=== PATIENT | male | born 1945 | race Two or more races ===

== ENCOUNTER 2024-03-17 13:18 | Inpatient (IN) | payer MEDICARE, MEDICAID, SELFPAY ==
[2024-03-17] VITALS (7 sets, daily range): BP systolic 110–150; BP diastolic 55–73; PULSE 62–79; RESP 17–99; TEMP 36.6–36.7; O2SAT 96–99
--- NOTE | 2024-03-17 13:27 | EKG_ITS ---
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
--- NOTE | 2024-03-17 13:32 | PD.EDRECHK ---
ED Recheck Abnl Lab Rx-RME/HPI General Chief Complaint: Recheck/Abnormal Lab/Rx Stated Complaint: Abnormal labs with Dr Cartagena this morning, chest Time Seen by Provider: 03/17/24 13:31 Arrival date/time: 03/17/24 13:18 RME / HPI RME / HPI narrative: 79-year-old male patient with significant history of hypertension, end-stage renal disease on hemodialysis MWF, status post CABG long time ago, was sent to us by Dr. Oliveira chapter relations administrator for evaluation regarding substernal chest pain. Onset of symptoms since last night as substernal chest pain, severity moderate, nonradiating. Patient took nitro with significant improvement of pain. Patient denies any cough.. Denies any vomiting blood denies any blood in the stool. Denies any changes in the color of the stool. Patient is taking Plavix. Related Data Home Medications ?Medication ?Instructions ?Recorded ?Confirmed clopidogrel 75 mg tablet (Plavix) 75 mg PO QDAY 06/27/18 06/16/23 levothyroxine 100 mcg tablet 150 mcg PO QDAY 01/27/21 06/17/23 vitamin B complex-vitamin C-folic 1 tab PO QDAY 01/27/21 06/17/23 acid 0.8 mg tablet (Nephro-Frances) allopurinol 100 mg tablet 100 mg PO QDAY 12/15/22 06/17/23 alprazolam 0.5 mg tablet 0.5 mg PO QDAY PRN Anxiety 06/16/23 06/17/23 amiodarone 200 mg tablet 200 mg PO DAILY 06/16/23 06/17/23 atorvastatin 40 mg tablet 20 mg PO QPM 06/16/23 06/17/23 carvedilol 6.25 mg tablet 6.25 mg PO BID 06/16/23 06/17/23 furosemide 40 mg tablet 40 mg PO QAM 06/16/23 06/17/23 linagliptin 5 mg tablet (Tradjenta) 5 mg PO QAM 06/16/23 06/17/23 sacubitril 49 mg-valsartan 51 mg 2 tab PO BID 06/16/23 06/17/23 tablet (Entresto) Allergies Allergy/AdvReac Type Severity Reaction Status Date / Time No Known Allergies Allergy Verified 06/17/23 09:33 Review of Systems Review of Systems Narrative Review of Systems: Review of system reviewed and within normal limits except mentioned in HPI ED Exam Narrative Physical exam: VITAL SIGNS: Reviewed. GENERAL APPEARANCE: Alert and interactive, follows commands, no acute distress, HEAD AND FACE: Non-traumatic. ENT: PERRL, pale conjunctiva, eyelid no trauma, Mucous membrane moist. NECK: Supple, nontender, no nuchal rigidity. CHEST: No tenderness, no crepitus, no paradoxical movement, no retractions. LUNGS: Clear, well ventilated, symmetric, no rales, no wheezing, no ronchi, no stridor, good breath sounds bilaterally. HEART: Regular rate, regular rhythm, no murmur, no gallops. ABDOMEN: Soft, positive bowel sounds, nondistended, no guarding, nontender, no rebound, no masses, RECTAL: Deferred. GENITAL: Deferred. NEUROLOGICAL: Gross motor function intact sensory function intact, Appropriate for age. MUSCULOSKELETAL: low back nontender, full range of motion. EXTREMITIES: Nontender, full range of motion. SKIN: Color pink, dry, no rash, no lacerations, no abrasions, no contusions. LYMPHATICS: Deferred. Course Quality Measures none Orders Category Date Time Status COVID-19 Screening Questionnaire NOW Care 03/17/24 16:31 Active Decision to Admit X1 Care 03/17/24 16:31 Completed EKG (ED ONLY) *Do not use* NOW Care 03/17/24 13:27 Completed EKG (ED ONLY) *Do not use* NOW Care 03/17/24 13:53 Completed Insert IV NOW Care 03/17/24 16:18 Active Notify provider NOW Care 03/17/24 16:31 Active Occult Blood,Stool (Nursing) ONCE Care 03/17/24 13:32 Active Consult to Cardiology Stat Cons 03/17/24 15:42 Ordered Consult to Nephrology Stat Cons 03/17/24 16:33 Ordered EKG (ED Only) Stat Exams 03/17/24 13:27 Draft EKG (ED Only) Stat Exams 03/17/24 13:53 Ordered XR chest 1V Stat Exams 03/17/24 13:53 Completed CBC Stat Lab 03/17/24 14:09 Completed Comprehensive Metabolic Panel Stat Lab 03/17/24 14:09 Completed Partial Thromboplastin Time AM DRAW Lab 03/19/24 05:00 Ordered Partial Thromboplastin Time Stat Lab 03/17/24 14:09 Completed Prothrombin Time with INR AM DRAW Lab 03/19/24 05:00 Ordered Prothrombin Time with INR Stat Lab 03/17/24 14:09 Completed Troponin I Stat Lab 03/17/24 14:09 Completed Type and Screen Stat Lab 03/17/24 14:09 Completed Urinalysis Stat Lab 03/17/24 14:20 Completed Aspirin Med 03/17/24 15:32 Discontinued 325 mg PO X1 ONE Heparin Inj Med 03/17/24 16:31 Discontinued 3,800 unit IV X1 ONE Heparin/D5w 25K 250 ML Ivpb [Heparin in D5w Ivpb] Med 03/17/24 16:45 Active 25,000 unit in 250 ml IV 12 units/kg/hr mg Hyd/Al Hyd/Marleni Susp [Maalox Susp] Med 03/17/24 16:14 Discontinued 30 ml PO X1 ONE Vital Signs Vital signs: Vital Signs Temperature 98.1 F 03/17/24 13:51 Pulse Rate 79 03/17/24 13:51 Respiratory Rate 20 03/17/24 13:51 Blood Pressure 150/73 H 03/17/24 13:51 Pulse Oximetry (%) 99 03/17/24 13:51 Oxygen Delivery Method Room Air 03/17/24 13:51 Recheck / Abnormal Lab / Rx MDM Narrative MDM Narrative:: 79-year-old male patient with significant history of hypertension, end-stage renal disease on hemodialysis MWF, status post CABG long time ago, was sent to us by Dr. Oliveira chapter relations administrator for evaluation regarding substernal chest pain. Onset of symptoms since last night as substernal chest pain, severity moderate, nonradiating. Patient took nitro with significant improvement of pain. Patient denies any cough.. Denies any vomiting blood denies any blood in the stool. Denies any changes in the color of the stool. Patient is taking Plavix. Patient's troponin was noted to be 5.2 went up from 3.9 earlier. I spoke with Dr. Castillo who told me to asked the hospitalist to admit and asked Dr. Oliveira to do consult also I talked to Dr. Cartagena however Dr. Oliveira is out of town wanted me to refer the patient to chapter relations administrator on-call Patient was given aspirin p.o. patient was started also on heparin drip Spoke with Dr. Bolaños, chapter relations administrator, who accepted the consult and comanagement thank you Dr. Patient data External records reviewed:: None Clinical information provided by:: patient Social determinants that could affect healthcare access:: none Patient has the following chronic illnesses:: ESRD, hypertension, CAD status post CABG How is presenting disease/condition affected by chronic disease/condition?: exacerbated by Evaluation data The following diagnostics were reviewed and interpreted by me:: lab results, radiology exam(s) and EKG tracing(s) Lab and/or radiology exams considered but not ordered:: None Interpretation Summary: EKG showed paced rhythm, ventricular rate of 70 bpm, WY interval 253, QRS duration 116 MS, no ST segment elevation depression noted. Initially patient's troponin was noted to be 3.9 in cardiology clinic, here no manage it was 5.5. The rest of the labs unremarkable except for chronic kidney disease, potassium is normal. Chest x-ray showed early heart failure. Medications / Prescriptions Medications or Prescriptions considered but not ordered:: None Medication administrations:: Medication Administration History Acetaminophen (Acetaminophen 325 Mg Tablet) 650 mg PO Q6H PRN PRN Reason: pain 1-3 and Fever >100.4 Stop: 04/16/24 17:09 Hydrocodone Bitart/Acetaminophen (Hydrocodone/Apap 5/325 Tablet) 1 tab PO Q4HR PRN PRN Reason: PAIN SCALE 4-6 (Moderate Stop: 03/22/24 17:09 Aspirin (Aspirin Ec 81 Mg Tabec) 81 mg PO QDAY [facility] Stop: 04/17/24 08:59 Atorvastatin Calcium (Atorvastatin Calcium 20 Mg Tablet) 40 mg PO HS [facility] Stop: 04/16/24 20:59 Carvedilol (Carvedilol 3.125 Mg Tablet) 6.25 mg PO BIDWM [facility] Stop: 04/17/24 07:59 Dextrose (Dextrose 50%-Water Inj 50 Ml Syringe) 25 ml IV Q15MIN PRN PRN Reason: BG 50-70 responsive npo pt Stop: 04/16/24 17:09 Dextrose (Dextrose 50%-Water Inj 50 Ml Syringe) 50 ml IV Q15MIN PRN PRN Reason: BG <50 OR BG <70 & pt unresponsive Stop: 04/16/24 17:09 Glucagon (Glucagon Inj 1 Mg Vial) 1 mg IM Q15MIN PRN PRN Reason: BG <70, and no IV access Heparin Sodium/Dextrose (Heparin In D5w Ivpb) 25,000 unit in 250 mls @ 7.62 mls/hr IV .Q24H [facility]; Protocol Stop: 03/31/24 16:44 Last Admin: 03/17/24 17:11 Dose: 12 units/kg/hr, 7.62 mls/hr Documented By: AURY Co-signed By: VG Insulin Human Lispro (Insulin Lispro (Admelog) 1 Unit/0.01 Ml Unit) 0 unit SC AC [facility]; Protocol Stop: 04/17/24 07:29 Levothyroxine Sodium 25 mcg/ (Levothyroxine Sodium 125 mcg) 150 mcg PO ACPSYCHIATRIC Stop: 04/17/24 05:59 Morphine Sulfate (Morphine Sulf Inj 10 Mg/Ml Vial) 1 mg IVP Q4H PRN PRN Reason: PAIN SCALE 7-10 (Severe Stop: 03/22/24 17:09 Ondansetron HCl (Ondansetron Inj 2 Mg/Ml Inj 2 Ml) 4 mg IV Q6H PRN; Protocol PRN Reason: NAUSEA OR VOMITING Stop: 04/16/24 17:09 Pharmacy Consult (Pharmacy Renal Dose Adjustment 1 Ea) 1 each XX PRN PRN PRN Reason: CONSULT Stop: 04/16/24 17:22 Discontinued Medications Al Hydrox/Mg Hydrox/Simethicone (Mg Hyd/Al Hyd/Marleni (Maalox Reg) Susp 30 Ml Udc) 30 ml PO X1 ONE Stop: 03/17/24 16:15 Last Admin: 03/17/24 16:19 Dose: 30 ml Documented By: AURY Aspirin (Aspirin 325 Mg Tablet) 325 mg PO X1 ONE Stop: 03/17/24 15:33 Last Admin: 03/17/24 16:13 Dose: 325 mg Documented By: AURY Atorvastatin Calcium (Atorvastatin Calcium 20 Mg Tablet) 20 mg PO HS ADOLFO Stop: 04/16/24 20:59 Heparin Sodium (Porcine) (Heparin Sod Inj 5000 Unit/Ml Vial) 3,800 unit 60 unit/kg (3800 unit) IV X1 ONE; Protocol Stop: 03/17/24 16:32 Last Admin: 03/17/24 17:06 Dose: 3,800 unit Documented By: AURY Co-signed By: RICHARD Aspirin, and heparin IV bolus and drip Consultations Consultation(s) initiated? (list below): Yes Consultation #1 (Physician, Specialty, Details): Dr House Diagnosis Recheck Differential Diagnosis: other (Chest pain, non-STEMI, elevated troponin) Most likely diagnosis given after review of the tests above:: Non-STEMI Admission Indicated Admission indicated?: indicated Explain why admission is indicated or not indicated:: Patient is to be admitted for further management Admission Request Was there a request for admission?: No Disposition Plan Disposition Plan: Admit Discharge Plan Problem List Clinical Impression: Non-STEMI (non-ST elevated myocardial infarction)
--- NOTE | 2024-03-17 13:53 | XR_ITS ---
Examination: PA chest single view TECHNIQUE: Upright PA lateral single view Exam date and time: March 17, 2024 1428 hours Comparison December 28, 2022 INDICATIONS: Chest pain today. FINDINGS: Mild to moderate enlargement left ventricle CABG Moderate vascular congestion No lobar pneumonia Subtle septal edema at the lung bases IMPRESSION: Early heart failure
[2024-03-17 14:20] LABS: Basophils # (Auto) 0.1 Thou/mm3 (0.0-0.2); Basophils % (Auto) 1 % (0-2.5); Eosinophils # (Auto) 0.2 Thou/mm3 (0.0-0.5); Eosinophils % (Auto) 2 % (0-10); Hematocrit 37.2 % (41.0-53.0); Hemoglobin 12.4 g/dL (13.5-16.0); Immature Granulocytes % (Auto) 0 % (0-0); Immature Granulocytes Auto 0.02 Thou/mm3 (0.00-0.00); Lymphocytes % (Auto) 18 % (10-50); Mean Corpuscular HGB Conc 33.3 g/dl (31.0-37.0); Mean Corpuscular Hemoglobin 32.5 pg (25.0-35.0); Mean Corpuscular Volume 98 fL (80-100); Monocytes # (Auto) 0.9 Thou/mm3 (0.0-0.8); Monocytes % (Auto) 8 % (0-12); Neutrophils # (Auto) 7.7 Thou/mm3 (1.8-7.7); Neutrophils % (Auto) 71 % (37-80); Nucleated Red Blood Cell % 0 /100 WBC (0); Platelet Count 160 Thou/mm3 (140-440); RDW Standard Deviation 43.2 fL (35.1-43.9); Red Blood Count 3.81 Miln/mm3 (4.50-5.90)
[2024-03-17 14:34] LABS: Collection Type, Urine Clean Catch
[2024-03-17 14:45] LABS: Bilirubin,Urine Negative (Negative); Blood,Urine 1+ (Negative); Clarity,Urine Clear (Clear/Hazy); Color,Urine Yellow (Lt Yel-Yel); Glucose, Urine Negative (Negative); Ketones,Urine Negative (Negative); Leukocyte Esterase,Urine Positive (Negative); Nitrite,Urine Negative (Negative); PH,Urine 7.5 (5.0-7.0); Protein,Urine 2+ (Neg - Trace); RBC,Urine 4 /hpf (0-3); Specific Gravity,Urine 1.023 (1.001-1.035); Squamous Epithelial Cell,Urine 3 /hpf (0-5); WBC,Urine 25 /hpf (0-5)
[2024-03-17 14:47] LABS: Alanine Aminotransferase 12 U/L (10-49); Albumin, Serum 4.6 gm/dL (3.4-4.8); Alkaline Phosphatase 149 U/L (46-116); Anion Gap 7 (7-16); Aspartate Amino Transferase 50 U/L (0-34); BUN/Creatinine Ratio 10 Ratio (12-20); Bilirubin,Total 0.7 mg/dL (0.3-1.2); Blood Urea Nitrogen 47 mg/dL (9-23); Calcium 9.3 mg/dL (8.3-10.6); Calcium (Corrected) 9.3 mg/dL (8.5-10.1); Carbon Dioxide 29.1 mMol/L (20.0-31.0); Chloride 98 mMol/L (98-107); Creatinine (Component) 4.6 mg/dL (0.6-1.3); Globulin 4.6 gm/dL (2.3-3.5); Glucose 186 mg/dL (74-106); Osmolality,Calculated 285 (275-295); Potassium 4.2 mMol/L (3.4-5.1); Sodium 134 mMol/L (136-145); Total Protein 9.2 gm/dL (5.7-8.2); eGFR 12 See Note
[2024-03-17 14:49] LABS: Troponin I 5.526 ng/mL (0.0-0.045)
[2024-03-17 14:51] LABS: INR 1.1 (0.9-1.3); Partial Thromboplastin Time 29.4 Seconds (22.0-36.0); Prothrombin Time 11.6 Seconds (9.0-12.2)
[2024-03-17] MEDS: Aspirin 325 MG TABLET PO (16:13)
[2024-03-17] MEDS: MG HYD/AL HYD/SIME (Maalox Reg) SUSP 30 ML UDC PO ×2 (16:19→22:15)
[2024-03-17] MEDS: HEPARIN SOD INJ 5000 UNIT/ML VIAL 3800 UNIT IV (17:06)
[2024-03-17] MEDS: Heparin/D5w 25K 250 ML Ivpb 25,000 UNIT/250 ML BAG 7.62 UNIT IV (17:11)
--- NOTE | 2024-03-17 17:17 | ESHP_ITS ---
<Statement entered by Karon Yoo MD - 03/17/24 18:33> I discussed with and supervised my co-resident involved in the care of this patient. I agree with the assessment and plan as documented above. Karon Yoo,PGY-3 Disclaimer: Despite multiple revisions, due to the dictation software being used, the document below may not be free of grammatical errors including phonetic/typographic errors. However, this does not deter from our commitment to providing health care in the patient's best interest in mind. 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 During assessment patient stated that yesterday he started having some substernal chest pain in the lower side of his chest which radiated to the mid chest and to the back around 6 PM and remained constant up to 12:30 at night. At 12:30 at night he then took 1 nitroglycerin which she stated provided to relieve. Patient described the pain as an infarct and he stated that he has had similar pain in the past when he had an MA. He mentioned that he decided to go to his video camera operator today given his chest pain and that his video camera operator told him that he had elevated troponins and sent him to the hospital. Patient was supposed to get hemodialysis today, but he stated that he decided to go to his video camera operator instead of hemodialysis. He states that right now he feels fine with no chest pain and that he could go and play a soccer game. No other complaints. He denies any nausea, vomiting, cough, fevers, lower extremity swelling, or shortness of breath. ED course: Initially patient came in hypertensive and afebrile. Initial labs were relevant for mild leukocytosis (11), # normochromic anemia (12.4), elevated BUN and creatinine (47 and 4.6 respectively), troponinemia (3.906 and up trended to 5.526), and UA was positive for leukocyte esterase. Initial imaging included chest x-ray which showed heart failure pattern, and EKG which showed some ST elevations in lead III, aVF, V3, V4, and V5. ED physician communicated with patient's video camera operator who stated to admit the patient and to consult the on-call video camera operator. On-call video camera operator stated to admit the patient and start heparin drip. PMH: As above Social Hx: Denies any alcohol, smoking, or drugs Surgical Hx: CABG and pacemaker placement Review of Systems Review of Systems Narrative Review of Systems: Constitutional: Denies sweats, Denies weight loss/gain, Denies fever, Denies chills. HEENT: Denies hearing loss, Denies ear pain, Denies postnasal drip, Denies double vision, Denies blurry vision. Respiratory: Denies shortness of breath, Denies cough, Denies wheezing. Cardiovascular: Admits chest pain, Denies palpitations, Denies sudden loss of consciousness. GI: Denies blood in stool, Denies constipation, Denies abdominal pain, Denies difficulty swallowing, Denies nausea or vomit. : Denies urinary incontinence, Denies pain while urinating, Denies increased urinary frequency. MSK: Denies joint pain, Denies joint swelling, Denies numbness. Skin: Denies rash, Denies itching, Denies easy bruising. Neuro: Denies headaches, Denies dizziness, Denies seizures. Past Medical History Surgical History OTHER SURGICAL HX: As in the history of present illness Exam Vital Signs Temp Pulse Resp BP Pulse Ox O2 Del Method 98.1 F 79 20 150/73 H 99 Room Air 03/17/24 13:51 03/17/24 13:51 03/17/24 13:51 03/17/24 13:51 03/17/24 13:51 03/17/24 13:51 Narrative Exam General: A/O x3, no acute distress, well-nourished, well-developed Eyes: PERRL, EOMI. Anicteric, vision grossly intact. Ears: No ear pain, no ear discharge, Hearing grossly intact. Nose: No nasal discharge. Mouth/Throat: Moist mucous membranes, no redness, no lesions. Neck: Neck supple, non-tender, no cervical lymphadenopathy. Lungs: Clear KARIS to auscultation and percussion, No accessory muscle use. Cardio: Normal S1/S2, regular rhythm, no murmurs, no JVD Abdomen: Soft, non-tender, no palpable masses, peristalsis present, no guarding or rebound. Extremities: Symmetrical, no significant deformities, no peripheral edema , non-tender, peripheral pulses presents. Skin: No rashes, no lesions, warm to touch. AV fistula in R UE, scar in mid chest Neuro: No focal neurological deficits. motor and sensory intact Psych: Cooperative, appropriate mood and effect. Results: Labs 03/17/24 14:09 03/17/24 14:09 Labs: Short CBC 03/17/24 Range/Units 14:09 WBC 11.0 H (3.8-10.6) Thou/mm3 Hgb 12.4 L (13.5-16.0) g/dL Hct 37.2 L (41.0-53.0) % Plt Count 160 (140-440) Thou/mm3 BMP 03/17/24 14:09 Sodium 134 L Potassium 4.2 Chloride 98 Carbon Dioxide 29.1 BUN 47 H Creatinine 4.6 H* Glucose 186 H Calcium 9.3 Cardiac Enzymes 03/17/24 Range/Units 14:09 Troponin I 5.526 H* D (0.0-0.045) ng/mL Liver Function 03/17/24 Range/Units 14:09 Total Bilirubin 0.7 (0.3-1.2) mg/dL AST 50 H (0-34) U/L ALT 12 (10-49) U/L Alkaline Phosphatase 149 H (46-116) U/L Albumin 4.6 (3.4-4.8) gm/dL Urine 03/17/24 Range/Units 14:20 Urine Color Yellow (Lt Yel-Yel) Urine Clarity Clear (Clear/Hazy) Urine pH 7.5 H (5.0-7.0) Ur Specific [place] 1.023 (1.001-1.035) Urine Protein 2+ A (Neg - Trace) Urine Glucose (UA) Negative (Negative) Quality Measures Quality Measures VTE prophylaxis Advance care planning discussed with:: patient and spouse Medications Home Medications and Allergies Home Medications ?Medication ?Instructions ?Recorded ?Confirmed ?Type clopidogrel 75 mg tablet (Plavix) 75 mg PO QDAY 06/27/18 06/16/23 History levothyroxine 100 mcg tablet 150 mcg PO QDAY 01/27/21 06/17/23 History vitamin B complex-vitamin C-folic 1 tab PO QDAY 01/27/21 06/17/23 History acid 0.8 mg tablet (Nephro-Frances) allopurinol 100 mg tablet 100 mg PO QDAY 12/15/22 06/17/23 History alprazolam 0.5 mg tablet 0.5 mg PO QDAY PRN Anxiety 06/16/23 06/17/23 History amiodarone 200 mg tablet 200 mg PO DAILY 06/16/23 06/17/23 History atorvastatin 40 mg tablet 20 mg PO QPM 06/16/23 06/17/23 History carvedilol 6.25 mg tablet 6.25 mg PO BID 06/16/23 06/17/23 History furosemide 40 mg tablet 40 mg PO QAM 06/16/23 06/17/23 History linagliptin 5 mg tablet (Tradjenta) 5 mg PO QAM 06/16/23 06/17/23 History sacubitril 49 mg-valsartan 51 mg 2 tab PO BID 06/16/23 06/17/23 History tablet (Entresto) Allergies Allergy/AdvReac Type Severity Reaction Status Date / Time No Known Allergies Allergy Verified 06/17/23 09:33 Visit Medications Acetaminophen (Acetaminophen 325 Mg Tablet) 650 mg PO Q6H PRN PRN Reason: pain 1-3 and Fever >100.4 Stop: 04/16/24 17:09 Hydrocodone Bitart/Acetaminophen (Hydrocodone/Apap 5/325 Tablet) 1 tab PO Q4HR PRN PRN Reason: PAIN SCALE 4-6 (Moderate Stop: 03/22/24 17:09 Dextrose (Dextrose 50%-Water Inj 50 Ml Syringe) 25 ml IV Q15MIN PRN PRN Reason: BG 50-70 responsive npo pt Stop: 04/16/24 17:09 Dextrose (Dextrose 50%-Water Inj 50 Ml Syringe) 50 ml IV Q15MIN PRN PRN Reason: BG <50 OR BG <70 & pt unresponsive Stop: 04/16/24 17:09 Glucagon (Glucagon Inj 1 Mg Vial) 1 mg IM Q15MIN PRN PRN Reason: BG <70, and no IV access Heparin Sodium/Dextrose (Heparin In D5w Ivpb) 25,000 unit in 250 mls @ 7.62 mls/hr IV .Q24H ADOLFO; Protocol Stop: 03/31/24 16:44 Last Admin: 03/17/24 17:11 Dose: 12 units/kg/hr, 7.62 mls/hr Insulin Human Lispro (Insulin Lispro (Admelog) 1 Unit/0.01 Ml Unit) 0 unit SC AC ADOLFO; Protocol Stop: 04/17/24 07:29 Morphine Sulfate (Morphine Sulf Inj 10 Mg/Ml Vial) 1 mg IVP Q4H PRN PRN Reason: PAIN SCALE 7-10 (Severe Stop: 03/22/24 17:09 Ondansetron HCl (Ondansetron Inj 2 Mg/Ml Inj 2 Ml) 4 mg IV Q6H PRN; Protocol PRN Reason: NAUSEA OR VOMITING Stop: 04/16/24 17:09 Discontinued Medications Al Hydrox/Mg Hydrox/Simethicone (Mg Hyd/Al Hyd/Marleni (Maalox Reg) Susp 30 Ml Udc) 30 ml PO X1 ONE Stop: 03/17/24 16:15 Last Admin: 03/17/24 16:19 Dose: 30 ml Aspirin (Aspirin 325 Mg Tablet) 325 mg PO X1 ONE Stop: 03/17/24 15:33 Last Admin: 03/17/24 16:13 Dose: 325 mg Heparin Sodium (Porcine) (Heparin Sod Inj 5000 Unit/Ml Vial) 3,800 unit 60 unit/kg (3800 unit) IV X1 ONE; Protocol Stop: 03/17/24 16:32 Last Admin: 03/17/24 17:06 Dose: 3,800 unit Assessment & Plan Plan 79-year-old male with past medical history of CAD s/p CABG, HFrEF (EF 30 to 35% 2022), A-fib s/p pacemaker, ESRD (HD on MWF), DM 2, hypothyroidism, hyperlipidemia, and hypertension was admitted to hospital on 03/17/2024 for elevated troponins and chest pain. #Elevated Troponin #Typical chest pain #workup for ACS #Hx of CAD s/p CABG ?Patient complaining of substernal chest pain with radiated to his back and was relieved with nitroglycerin ? Troponins were 3.906 and up trended to 5.526 ?EKG which showed some ST elevations in lead III, aVF, V3, V4, and V5. ?ED physician communicated with patient's video camera operator who stated to admit the patient and to consult the on-call video camera operator. On-call video camera operator stated to admit the patient and start heparin drip. Plan: ? Heparin drip started ?Atorvastatin 20 mg at bedtime ? Trend troponins every 6 hours ?Cardiology consulted, appreciate recommendations ? Will continue to monitor #ESRD (HD on MWF) ? Patient was supposed to get hemodialysis today, but skipped hemodialysis to go to his video camera operator. ? Patient is BUN was 47 and creatinine 4.6 on admission ? Patient follows up with president outpatient ? Hemodialysis held today and mostly will be done tomorrow as per nephrology Plan: ? Avoid nephrotoxic agents ? Renally dose medications ? Nephrology consulted, appreciate recommendations ? Will continue monitor #Normocytic normochromic anemia ?Patient's hemoglobin was 12.4 on admission ? Patient has a history of chronic anemia with base hemoglobin at 13.2 ?No active signs of bleeding Plan: ?Will transfuse hemoglobin less than 7 ? Will continue to monitor #Mild leukocytosis ?WBC 11 on admission ? Most likely reactive #Hx of HFrEF (EF 30 to 35% in 2022) ? Patient is not on acute decompensated heart failure exacerbation at this time Plan: ? Echo ordered ?Cardiology consulted, appreciate recommendations ? Will continue to monitor #Hx of A-fib s/p pacemaker ? EKG showed paced rhythm with some ST elevations in lead III, aVF, V3, V4, and V5 ? Patient rate controlled at this time Plan: ? Will await medication reconciliation for starting amiodarone 200 mg daily ?Cardiology consulted, appreciate recommendations #Hx of DM2 ? Glucose 186 on admission Plan: ? A1c ordered for a.m. labs ? ISS ? Accu-Cheks and hypoglycemia protocol ordered ? Will continue to monitor #Hx of hyperlipidemia ? Atorvastatin 20 mg nightly started #Hx of hypothyroidism ? Restarted patient's levothyroxine 150 mg Disposition: Patient admitted to telemetry for elevated troponins and chest pain on heparin drip Diet: cardiac/carb cons GI prophylaxis: protonix DVT prophylaxis: Heparin drip Code:Full Case disclosed with Attending Dr. Perry and My senior Dr. Yoo PGY3. Israel Dugan PGY1 Attending Provider Attestation/Addendum I have examined the patient, reviewed labs and imaging findings, discussed the case with the resident(s), and reviewed entered orders. I agree with the plan of care as outlined in this note, with these additional summaries/recommendations: Patient is a 79-year-old male with a medical history of CAD status post CABG, CHF, paroxysmal atrial fibrillation with slow ventricular response status post pacemaker, ESRD on hemodialysis MWF via right upper extremity AV fistula, anxiety, hypothyroidism, hyperlipidemia, and primary hypertension who presents to [facility] emergency department on 03/17/2024 with chief complaint of substernal chest pain with elevated troponins and EKG changes and thus hospitalist team consulted for continuation of care. #NSTEMI Type I vs II # History of CAD with CABG Presented with chest pain Given typical features and CAD history this is concerning for ACS or plaque rupture BAO score: 5 points indicating 26% risk of all cause mortality, new or recurrent MA, severe recurrent ischemia requiring urgent revascularization Pat score: 159 points indicating 26% probability of from admission to 6 months Troponin elevated to 5.526 (of note troponin chronically elevated likely secondary to ESRD) EKG demonstrated paced rhythm, rate 70, ST changes in aVF and V3-V6 Work-up: Telemetry, troponin until downtrending, serial EKGs, TTE CAD risk factor screening: A1c, lipid panel, TSH Treatment: Titrate O2 as needed for symptoms Antiplatelet: S/p ASA 325 mg, start ASA 81mg PO QD, appreciate cardio recs on Plavix Anticoagulation: Started on heparin gtt. Plaque stabilization: Atorvastatin 40 mg p.o. at bedtime Cardiac remodeling: Resume Coreg 6.25 mg p.o. twice daily and will consider starting JUSTO/ARB in AM We will consider adding IV morphine as needed or nitroglycerin as needed if chest pain develops again Plan: Cardiology consulted, recommendations appreciated. Continue above management and trend troponins. # History of CHF #Hx of A-fib Echocardiogram from 12/15/2022 showed severe systolic dysfunction with estimated EF of 30 to 35%. Patient does not appear to be in acute exacerbation at this time. Plan: Resume home Coreg. We will consider resuming Entresto in AM and no need for diuresis as patient is dialysis dependent. Echocardiogram ordered and cardiology consulted. Strict I's and O's. # End-stage renal disease History of ESRD on HD Wednesday via right upper extremity AV fistula Plan: Consult nephrology, recommendations appreciated. # Hypothyroidism TSH and free T4 ordered Plan: Pending med rec to resume home levothyroxine # Hyperlipidemia Lipid panel ordered Plan: Continue atorvastatin # Anxiety Plan: Resume home anxiolytics once med rec completed Dr. Perry
--- NOTE | 2024-03-17 17:41 | ECHO_ITS ---
Transthoracic Echo Report Ht (in): 66 Wt (lb): 140 Exam Location: Portable Status: Inpatient Medical Genetics Director: Anabel Edouard Indications: Procedure Performed: BP: 104 / 60 HR: 62 Technical Quality: Fair MEASUREMENTS (Male / Female) Normal Values 2D ECHO LV Diastolic Diameter PLAX 5.7 cm 4.2 - 5.9 / 3.9 - 5.3 cm LV Systolic Diameter PLAX 4.4 cm IVS Diastolic Thickness 1.0 cm 0.6 - 1.0 / 0.6 - 0.9 cm LVPW Diastolic Thickness 1.0 cm 0.6 - 1.0 / 0.6 - 0.9 cm LV Relative Wall Thickness 0.3 LVOT Diameter 1.9 cm LA Volume Index 46.8 cm?/m? 16 - 28 cm?/m? Ascending Aorta Diameter 3.7 cm M-MODE Aortic Root Diameter MM 3.0 cm LA Systolic Diameter MM 4.7 cm LA Ao Ratio MM 1.6 AV Cusp Separation MM 2.2 cm DOPPLER AV Peak Velocity 149.0 cm/s AV Peak Gradient 8.9 mmHg AV Mean Gradient 5.0 mmHg AV Velocity Time Integral 28.6 cm LVOT Peak Velocity 86.5 cm/s LVOT Peak Gradient 3.0 mmHg LVOT Velocity Time Integral 15.5 cm LVOT Cardiac Index 1581.5 cm?/min?m? AV Area Cont Eq vti 1.5 cm? AV Area Cont Eq pk 1.6 cm? MV Peak Velocity 125.0 cm/s MV Peak Gradient 6.3 mmHg MV Mean Velocity 54.8 cm/s MV Mean Gradient 2.0 mmHg MV Area PHT 3.7 cm? MR Peak Velocity 301.5 cm/s MR Peak Gradient 36.4 mmHg Mitral E Point Velocity 106.0 cm/s Mitral A Point Velocity 0.5 cm/s Mitral E to A Ratio 218.6 LV E' Lateral Velocity 7.1 cm/s Mitral E to LV E' Lateral Ratio 15.0 LV E' Septal Velocity 3.6 cm/s Mitral E to LV E' Septal Ratio 29.5 TR Peak Velocity 212.0 cm/s TR Peak Gradient 18.0 mmHg PV Peak Velocity 113.0 cm/s PV Peak Gradient 5.1 mmHg FINDINGS Left Ventricle Normal left ventricular size, wall thickness. Moderate systolic dysfunction with hypokinesis of infe ro posterior and anteiror wall. The ejection fraction is visually estimated at 30-35%. Right Ventricle The right ventricle is mildly dilated. Mild systolic dysfunction. The estimated right ventricular s ystolic pressure, 39 mmHg. RAP 15. Pacing wire presnt. Left Atrium The left atrium is moderately dilated. Right Atrium The right atrium is mildly dilated. Atrial Septum The interatrial septum appears normal with no evidence of a shunt. Aorta The ascending aorta is mildly dilated. Mitral Valve The mitral valve is normal by two-dimensional, color flow and Doppler interrogation. There is mild mitral valve regurgitation. Aortic Valve The aortic valve is trileaflet. Mild sclerosis without stenosis. There is mild aortic valve regurgi tation. Tricuspid Valve The tricuspid valve is normal by two-dimensional, color flow and Doppler interrogation. There is mil d tricuspid valve regurgitation. Pulmonic Valve There is mild to moderate pulmonic valve regurgitation. Vessels The pulmonary artery appears normal. The inferior vena cava pulmonary and hepatic veins appear dilat ed. Pericardium The pericardium is normal by two-dimensional imaging. There is no significant pericardial effusion. CONCLUSIONS Indication: Elevated Trop Normal LV size. Moderate systolic dysfunction. Hypokinesis of inferoposterior and anterior wall. Est imated EF 30-35% Mild RV dilatationn. Mild RV dysfunction. Estimated RVSP 39mmHg. Pacing wire present. Moderate LA dilatation. Mild RA dilatation. The ascending aorta is mildly dilated. Mild AV sclerosis without stenosis. Mild MR, AI, TR. Mild to moderate PI. IVC dilated. Cristopher Ga (Electronically Signed) Final Date: 20 March 2024 17:41
--- NOTE | 2024-03-17 17:49 | ESCONSULT_ITS ---
<Statement entered by Britton Bolaños MD - 03/18/24 09:41> I have personally seen and examined the patient separately on the above date of service and discussed the plan of care with the resident. I reviewed the resident Dr. Dowell consultation progress note and agree with the resident findings and plan in the note above and have also edited the documentation to reflect my findings and plan. 79-year-old male with a past medical history of severe CAD status post to CABG [1998 with 4 grafts in 2008 with 3 grafts as per patient], PCI to mid to distal LCx in 2017, recent PCI with 3 stents to the SVG to OM1 graft in December 2022 still with residual disease, residual severe 80% stenosis of the STAPLES to LAD anastomosis, [place] arteries showed 100% occluded RCA and mild disease of the LCx with patent stent, severe 90% stenosis of the proximal LAD as well as the proximal diagonal with faint collaterals to right, paroxysmal atrial fibrillation, sick sinus syndrome, Medtronic dual-chamber permanent pacemaker in 2020, severe systolic CHF with an EF of 30 to 35% in December 2022, moderate to severe RV dysfunction along with diastolic dysfunction, essential hypertension, diabetes mellitus, hyperlipidemia, end-stage renal disease on hemodialysis,, chronic anemia mostly from ESRD, hypothyroidism presented to the hospital for further evaluation of chest pain. 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 Ga this morning as he had started to have severe chest pain around 6 PM yesterday and continued to have more chest pain in spite of the nitroglycerin. Patient still have the chest pain's office and a troponin was sent from his office and patient was sent to the emergency department for further evaluation. Patient denies any kind of shortness of breath or new leg swelling or orthopnea or PND denied any Fever or chills or cough or sputum production. Cardiology was called consulted as his troponins were elevated at 5.5. Patient is now chest pain-free during my examination. In the emergency department initial vitals showed blood pressure of 150/73 mmHg heart rate of 79/min, afebrile and saturations normal on room air speaking in full sentences, and hemoglobin 12.4 WBC 11 platelets 160 BUN 46 creatinine of 4.6 on dialysis, sodium 134, troponin 5.5 but the office troponin was 2.5 LFTs showed mild AST elevation at 50 and alk phos of 149. UA was negative. EKG performed in the emergency department showed paced rhythm, chest x-ray showed mild vascular congestion. Assessment and plan: 1. Acute coronary syndrome-NSTEMI type I with troponins of 5.5 on admission. Patient with severe CAD status post to CABG [1998 with 4 grafts in 2008 with 3 grafts as per patient], PCI to mid to distal LCx in 2017, recent PCI with 3 stents to the SVG to OM1 graft in December 2022 still with residual disease, residual severe 80% stenosis of the STAPLES to LAD anastomosis, [place] arteries showed 100% occluded RCA and mild disease of the LCx with patent stent, severe 90% stenosis of the proximal LAD as well as the proximal diagonal with faint collaterals to right. EKG with paced rhythm and the patient is chest pain-free at the present point of time but had severe chest pain yesterday evening until this morning. Patient is hemodynamically stable. Reviewed the catheterization images from 2017 as well as 2022. Patient does have residual disease as noted above with severe 80 to 90% stenosis of the STAPLES to LAD as well as severe [place] LAD, diagonal as well as RCA 100% occluded. The LCx is patent with mild disease. The SVG to OM1 graft result was suboptimal in 2022 and probably is occluded at the present point of time which is probably the reason for the NSTEMI along with other severe disease. Patient will need left heart cardiac catheterization with possible PCI but patient does not want to have any cardiac catheterization after his last PCI done in 2022 because of significant pain and blood leak from his prior right femoral cardiac catheterizations. He wants to be treated only medically at the present point of time. Patient is chest pain-free and will continue with heparin drip aspirin, Plavix, high intensity statin and beta-korey if BP permissible. If the patient needs PCI patient will need a high risk PCI with intervention to the STAPLES to LAD as it would be the graft to salvage but would need to be done at [facility] or a tertiary center given his severe biventricular failure. If the SVG to OM1 is occluded which should be only medical treatment along with the rest of the disease. 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 2. History of paroxysmal atrial fibrillation, sick sinus syndrome, Medtronic dual-chamber permanent pacemaker in 2020-patient continues to be in paced rhythm at the present point of time. Rate is well-controlled. Patient is on amiodarone 200 mg daily which should be continued and patient should be on beta- korey increase metoprolol to 25 mg once daily. Unclear why patient is not on anticoagulation given his history of paroxysmal atrial fibrillation and he has elevated chads Vascor. Continue heparin drip for now. Patient needs to be on Eliquis 2.5 mg twice daily along with Plavix and aspirin can be discontinued if oral anticoagulation is pursued as outpatient. 3. Severe systolic CHF with an EF of 30 to 35% in December 2022, moderate to severe RV dysfunction, mild valvular abnormalities with mild to moderate PAH. Patient needs to be on goal-directed medical therapy and should be on metoprolol XL Entresto and spironolactone. Patient is end-stage renal disease on hemodialysis and continue fluid management with dialysis. Does not appear to be severely volume overloaded at the present point of time strict input output Daily 20 g odium diet. 4. End-stage renal disease on hemodialysis 5. Hypertension 6. Hyperlipidemia 7. Hypothyroidism 8. Diabetes mellitus type 2, 9. Chronic anemia 10. BPH 11. Possible gout Management of rest of the medical conditions as per primary team and other consultants. Thank you for the consult and allowing me to participate in the care of the patient. Cardiology will continue to follow. Britton Bolaños M.D. 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 Ga due to substernal chest pain which radiated to the back, onset at 6 PM yesterday and resolved around midnight after taking 1 nitroglycerin. Patient then went to his shotgun shell loading machine operator today and had troponin done on him and it was positive and he was told to go to the ED to get further evaluated. When I went to see him he denies having any chest pain or shortness of breath and he denies other symptoms of nausea, vomiting, blurry vision, cough, extremity swelling, fevers, chills. He also says that he would like to be medically managed and he had a cardiac cath last year and a lot of blood leak from his leg and he does not want that to happen again. He has no other complaints at this time ED Course: Patient arrived to the ED afebrile with a blood pressure of 150/73, and heart rate of 79. He was worked up and was found to have a sodium of 134, potassium 4.2, BUN creatinine 47 and 4.6 respectively, blood sugar 186, white count of 11, hemoglobin 12.4, troponin of 3.9. X-ray did show early heart failure pattern. EKG was electronically paced as patient has pacemaker. Medicine and cardiology were consulted and patient admitted to floors. PMH: As above Surgeries: 2 CABGs 1998 and 2008, pacemaker placement (2016?) Allergies: NKDA Meds: Awaiting med rec Social Hx: Denies any alcohol, smoking, or drugs, drank a bit when he was younger cc:: cc: Isai Perry MD Review of Systems Review of Systems Narrative Review of Systems: Constitutional: No fever, chills, fatigue, weakness, weight loss HEENT: No eye pain, vision loss, ear pain, hearing loss, dysphagia, Cardiovascular: No chest pain, palpitations, edema, pain with walking Respiratory: No cough, shortness of breath, wheezing GI: No NVD, abdominal pain, constipation, blood in stool, loss of appetite, heartburn Extremities: No presence of pitting edema MSK: No back pain, joint pain, joint swelling Neuro: No dizziness, numbness, weakness, headaches, seizures, tremors Psych: No anxiety, depression Exam Vital Signs Temp Pulse Resp BP Pulse Ox O2 Del Method 98.0 F 66 17 118/55 L 99 Room Air 03/17/24 17:13 03/17/24 17:33 03/17/24 17:33 03/17/24 17:13 03/17/24 17:13 03/17/24 17:13 Narrative Exam General: AAOx3, NAD, pleasant guatemalan speaking male HEENT: Moist mucous membranes, conjunctiva clear, EOMI, PERRLA, Cardiovascular: S1, S2, radial pulses +2 bilat, RRR, no JVD present Pulmonary: CTAB bilat no cough, no wheezing GI: No tenderness to light or deep palpitation, no guarding, rigidity, rebound tenderness or distension Extremities: No presence of trace or pitting edema in lower extremities bilaterally, dorsalis pedis pulses +2 bilaterally, Fistula in RUE Neuro: AAOx3, no focal motor or sensory deficits in the UE or LE bilat Psych: Good judgement, thought and behavior. Coopereative Results Labs 03/17/24 14:09 03/17/24 14:09 Labs: Short CBC 03/17/24 Range/Units 14:09 WBC 11.0 H (3.8-10.6) Thou/mm3 Hgb 12.4 L (13.5-16.0) g/dL Hct 37.2 L (41.0-53.0) % Plt Count 160 (140-440) Thou/mm3 BMP 03/17/24 14:09 Sodium 134 L Potassium 4.2 Chloride 98 Carbon Dioxide 29.1 BUN 47 H Creatinine 4.6 H* Glucose 186 H Calcium 9.3 Cardiac Enzymes 03/17/24 Range/Units 14:09 Troponin I 5.526 H* D (0.0-0.045) ng/mL Liver Function 03/17/24 Range/Units 14:09 Total Bilirubin 0.7 (0.3-1.2) mg/dL AST 50 H (0-34) U/L ALT 12 (10-49) U/L Alkaline Phosphatase 149 H (46-116) U/L Albumin 4.6 (3.4-4.8) gm/dL Urine 03/17/24 Range/Units 14:20 Urine Color Yellow (Lt Yel-Yel) Urine Clarity Clear (Clear/Hazy) Urine pH 7.5 H (5.0-7.0) Ur Specific [place] 1.023 (1.001-1.035) Urine Protein 2+ A (Neg - Trace) Urine Glucose (UA) Negative (Negative) Quality Measures Quality Measures VTE prophylaxis Advance care planning discussed with:: patient Medications Home Medications and Allergies Home Medications ?Medication ?Instructions ?Recorded ?Confirmed ?Type clopidogrel 75 mg tablet (Plavix) 75 mg PO QDAY 06/27/18 06/16/23 History levothyroxine 100 mcg tablet 150 mcg PO QDAY 01/27/21 06/17/23 History vitamin B complex-vitamin C-folic 1 tab PO QDAY 01/27/21 06/17/23 History acid 0.8 mg tablet (Nephro-Frances) allopurinol 100 mg tablet 100 mg PO QDAY 12/15/22 06/17/23 History alprazolam 0.5 mg tablet 0.5 mg PO QDAY PRN Anxiety 06/16/23 06/17/23 History amiodarone 200 mg tablet 200 mg PO DAILY 06/16/23 06/17/23 History atorvastatin 40 mg tablet 20 mg PO QPM 06/16/23 06/17/23 History carvedilol 6.25 mg tablet 6.25 mg PO BID 06/16/23 06/17/23 History furosemide 40 mg tablet 40 mg PO QAM 06/16/23 06/17/23 History linagliptin 5 mg tablet (Tradjenta) 5 mg PO QAM 06/16/23 06/17/23 History sacubitril 49 mg-valsartan 51 mg 2 tab PO BID 06/16/23 06/17/23 History tablet (Entresto) Allergies Allergy/AdvReac Type Severity Reaction Status Date / Time No Known Allergies Allergy Verified 06/17/23 09:33 Visit Medications Acetaminophen (Acetaminophen 325 Mg Tablet) 650 mg PO Q6H PRN PRN Reason: pain 1-3 and Fever >100.4 Stop: 04/16/24 17:09 Hydrocodone Bitart/Acetaminophen (Hydrocodone/Apap 5/325 Tablet) 1 tab PO Q4HR PRN PRN Reason: PAIN SCALE 4-6 (Moderate Stop: 03/22/24 17:09 Atorvastatin Calcium (Atorvastatin Calcium 20 Mg Tablet) 20 mg PO HS ADOLFO Stop: 04/16/24 20:59 Dextrose (Dextrose 50%-Water Inj 50 Ml Syringe) 25 ml IV Q15MIN PRN PRN Reason: BG 50-70 responsive npo pt Stop: 04/16/24 17:09 Dextrose (Dextrose 50%-Water Inj 50 Ml Syringe) 50 ml IV Q15MIN PRN PRN Reason: BG <50 OR BG <70 & pt unresponsive Stop: 04/16/24 17:09 Glucagon (Glucagon Inj 1 Mg Vial) 1 mg IM Q15MIN PRN PRN Reason: BG <70, and no IV access Heparin Sodium/Dextrose (Heparin In D5w Ivpb) 25,000 unit in 250 mls @ 7.62 mls/hr IV .Q24H ADOLFO; Protocol Stop: 03/31/24 16:44 Last Admin: 03/17/24 17:11 Dose: 12 units/kg/hr, 7.62 mls/hr Insulin Human Lispro (Insulin Lispro (Admelog) 1 Unit/0.01 Ml Unit) 0 unit SC AC ADOLFO; Protocol Stop: 04/17/24 07:29 Levothyroxine Sodium 25 mcg/ (Levothyroxine Sodium 125 mcg) 150 mcg PO [facility] Stop: 04/17/24 05:59 Morphine Sulfate (Morphine Sulf Inj 10 Mg/Ml Vial) 1 mg IVP Q4H PRN PRN Reason: PAIN SCALE 7-10 (Severe Stop: 03/22/24 17:09 Ondansetron HCl (Ondansetron Inj 2 Mg/Ml Inj 2 Ml) 4 mg IV Q6H PRN; Protocol PRN Reason: NAUSEA OR VOMITING Stop: 04/16/24 17:09 Pharmacy Consult (Pharmacy Renal Dose Adjustment 1 Ea) 1 each XX PRN PRN PRN Reason: CONSULT Stop: 04/16/24 17:22 Discontinued Medications Al Hydrox/Mg Hydrox/Simethicone (Mg Hyd/Al Hyd/Marleni (Maalox Reg) Susp 30 Ml Udc) 30 ml PO X1 ONE Stop: 03/17/24 16:15 Last Admin: 03/17/24 16:19 Dose: 30 ml Aspirin (Aspirin 325 Mg Tablet) 325 mg PO X1 ONE Stop: 03/17/24 15:33 Last Admin: 03/17/24 16:13 Dose: 325 mg Heparin Sodium (Porcine) (Heparin Sod Inj 5000 Unit/Ml Vial) 3,800 unit 60 unit/kg (3800 unit) IV X1 ONE; Protocol Stop: 03/17/24 16:32 Last Admin: 03/17/24 17:06 Dose: 3,800 unit Assessment & Plan Plan Assessment 79-year-old male with past medical history of CAD s/p CABG, HFrEF (EF 30 to 35% 2022), A-fib s/p pacemaker, ESRD (HD on MWF), DM 2, hypothyroidism, hyperlipidemia, and hypertension was admitted to hospital on 03/17/2024 for elevated troponins and chest pain. #NSTEMI #Elevated Troponin #Hx of CAD s/p quadruple and triple bypass #History of stents #Hx of HFrEF (EF 30 to 35% in 2022) Patient complaining of typical chest pain that was relieved with nitroglycerin Dr Hrameet jose after his troponins done in office were elevated and complaining of chest pain Patient had PCI done in 01/2023 which patient had 3 drug-eluting stents. He had 80% distal anastomotic site stenosis of STAPLES to the LAD, totally occluded vein bypass graft to the diagonal branch as well as the RCA, 10 percent occlusion of the proximal RCA, 90% stenosis in the mid portion of the LAD, 99% stenosis of the first diagonal branch of the LAD, 100% occlusion of the mid LAD [place] vessels, and 100% occlusion of the ostium of the second obtuse marginal branch of the circumflex coronary artery with patent previously stented midportion about left circumflex coronary artery after the origin of the second obtuse marginal branch Troponins were 3.906 and up trended to 5.526 and now at 6 Seems like the patient does not want heart catheterization as he had stated. Will continue to treat medically at this point Plan: ? Continue heparin drip ? Continue Lipitor 40 ? Continue with aspirin ? Trend troponins every 6 hours #Hx of HFrEF (EF 30 to 35% in 2022) #Hx of A-fib s/p pacemaker Patient is rate controlled at this time Plan: ?Resumed home Coreg 6.25 mg twice daily ?Follow-up echo ?Keep magnesium and potassium above 2 and 4 respectively #Hx of hyperlipidemia Plan: ?Continue Lipitor 40 ?Follow-up lipid panel #Hx of DM2 #ESRD (HD on MWF) #Normocytic normochromic anemia #Mild leukocytosis #Hx of hypothyroidism Above management by primary hospitalist team Patient seen and care discussed with my attending physician, Dr. Mami Emerson, PGY-1
[2024-03-17 18:26] LABS: Troponin I 6.041 ng/mL (0.0-0.045)
[2024-03-17] MEDS: ATORVASTATIN CALCIUM 20 MG TABLET 40 MG PO (21:22)
--- NOTE | 2024-03-17 22:09 | PC.NURSE ---
Dr. Dawson notified via telephone of patient request for Maalox, patient verbalized abdominal discomfort, denies pain, denies chest pain, patient states she was given a dose of Maalox earlier in the day for same complaint and had complete relief with medication . Received telephone order from Dr. Dawson for Maalox 30ml PO once now.
[2024-03-17 23:48] LABS: Troponin I 7.466 ng/mL (0.0-0.045)
[2024-03-17 23:58] LABS: Partial Thromboplastin Time 52.8 Seconds (22.0-36.0)
[2024-03-18] VITALS (25 sets, daily range): BP systolic 94–137; BP diastolic 53–87; PULSE 51–77; RESP 16–97; TEMP 36.2–37.1; O2SAT 95–98; BMI 14.0
[2024-03-18] MEDS: LEVOTHYROXINE SODIUM 150 MCG PO (05:09)
[2024-03-18 05:48] LABS: Basophils # (Auto) 0.1 Thou/mm3 (0.0-0.2); Basophils % (Auto) 1 % (0-2.5); Eosinophils # (Auto) 0.3 Thou/mm3 (0.0-0.5); Eosinophils % (Auto) 3 % (0-10); Hematocrit 31.7 % (41.0-53.0); Hemoglobin 10.7 g/dL (13.5-16.0); Immature Granulocytes % (Auto) 0 % (0-0); Immature Granulocytes Auto 0.03 Thou/mm3 (0.00-0.00); Lymphocytes # (Auto) 1.6 Thou/mm3 (1.0-4.8); Lymphocytes % (Auto) 17 % (10-50); Mean Corpuscular HGB Conc 33.8 g/dl (31.0-37.0); Mean Corpuscular Hemoglobin 32.5 pg (25.0-35.0); Mean Corpuscular Volume 96 fL (80-100); Monocytes # (Auto) 0.8 Thou/mm3 (0.0-0.8); Monocytes % (Auto) 8 % (0-12); Neutrophils % (Auto) 71 % (37-80); Nucleated Red Blood Cell % 0 /100 WBC (0); Platelet Count 131 Thou/mm3 (140-440); RDW Standard Deviation 41.8 fL (35.1-43.9); Red Blood Count 3.29 Miln/mm3 (4.50-5.90); White Blood Count 9.9 Thou/mm3 (3.8-10.6)
[2024-03-18 06:03] LABS: INR 1.1 (0.9-1.3); Partial Thromboplastin Time 42.7 Seconds (22.0-36.0)
[2024-03-18 06:05] LABS: Glucose Estimated Average 137 mg/dL (80-131); Hemoglobin A1C 6.4 % Hgb (4.8-6.0)
[2024-03-18] MEDS: HEPARIN SOD INJ 5000 UNIT/ML VIAL 1900 UNIT IV ×3 (06:32→19:47)
[2024-03-18 06:39] LABS: Alanine Aminotransferase < 7 U/L (10-49); Albumin, Serum 3.9 gm/dL (3.4-4.8); Albumin/Globulin Ratio 1.1 (1.2-2.2); Alkaline Phosphatase 125 U/L (46-116); Anion Gap 10 (7-16); Aspartate Amino Transferase 51 U/L (0-34); BUN/Creatinine Ratio 12 Ratio (12-20); Bilirubin,Total 0.7 mg/dL (0.3-1.2); Blood Urea Nitrogen 60 mg/dL (9-23); Calcium (Corrected) 9.1 mg/dL (8.5-10.1); Carbon Dioxide 27.1 mMol/L (20.0-31.0); Cardiac Risk Estimate 4.7 RATIO (4.0-6.7); Chloride 99 mMol/L (98-107); Cholesterol 142 mg/dL (132-200); Creatinine (Component) 5.1 mg/dL (0.6-1.3); Globulin 3.7 gm/dL (2.3-3.5); Glucose 142 mg/dL (74-106); HDL Cholesterol 30 mg/dL (40-60); LDL Cholesterol,Calculated 91 mg/dL (0-130); Magnesium 1.8 mg/dL (1.6-2.6); Osmolality,Calculated 290 (275-295); Phosphorous 3.5 mg/dL (2.4-5.1); Potassium 4.6 mMol/L (3.4-5.1); Sodium 136 mMol/L (136-145); Total Protein 7.6 gm/dL (5.7-8.2); Triglycerides 103 mg/dL (30-150); eGFR 11 See Note
[2024-03-18 06:40] LABS: Troponin I 7.179 ng/mL (0.0-0.045)
--- NOTE | 2024-03-18 07:13 | PD.NEPHCONS ---
History of Present Illness Data of Consult Consult date: 03/18/24 Requesting Physician: Isai Perry MD Primary Care Provider: Nieves Castillo MD Consult Narrative Reason for consult: ESRD, need for HD History of present illness: Mr. Casillas is a 79-year-old gentleman with past medical history of CAD s/p CABG, HFrEF (EF 30 to 35% 2022), A-fib s/p pacemaker, ESRD (HD on MWF), DM 2, hyperlipidemia, hypothyroidism and hypertension presented to the emergency department sent by Dr. Ga for chest pain and elevated troponin. Patient started having chest pain the night before and went to Dr. Cartagena office without going to dialysis. He took [address] Cartagena sent him for troponin check and then it came back slightly elevated he was told to go to the emergency department. His daughter Kesha is at the bedside and is the informant. Patient missed dialysis yesterday. Renal consultation requested for need for dialysis. In the emergency department BUN 47, creatinine 4.6, troponin elevated to 5.5. Urinalysis shows mild UTI. Chest x-ray showed minimal fluid overload, EKG showed some ST changes. Dr. Ga was called by ER provider and he recommended heparin drip and to consult production miner. 03/18/2024 Patient currently seen in telemetry. Daughter at bedside.WBC 9.9, hemoglobin 10.7, platelets 131. Sodium 136, potassium 4.6, BUN 60, creatinine 5.1, GFR 11, A1c 6.4, AST 51, ALT less than 7, alk phos 125, troponin this morning 7.1, albumin 3.9. Lipids normal. Urinalysis shows 2+ protein, no bacteria. Chest x-ray showed mild fluid overload. cc:: cc: Isai Perry MD Review of Systems Review of Systems Narrative Review of Systems: CONSTITUTIONAL: Patient denies any fever, chills. HEENT: Denies any visual disturbances or hearing problems. CARDIOVASCULAR: Patient denies any chest pain, shortness of breath, swelling in the lower extremities. Chest pain resolved PULMONARY: Patient denies any shortness of breath, cough. GASTROINTESTINAL: Patient denies any abdominal pain, constipation, nausea, vomiting, diarrhea. GENITOURINARY: Patient denies any urinary symptoms of burning or frequency or hematuria, denies any form in the urine. SKIN: Denies any rash. MUSCULOSKELETAL: Denies any muscular skeletal problems of joint pains. NEUROLOGICAL: Denies any neurological problems of strokes, seizures or confusion. Denies any memory problems. PSYCHIATRIC: Denies any depression or anxiety. LYMPHATICS : No lymphadenopathy Past Medical History Past Medical History NEUROLOGIC: Positive Neurological Disorders and Transient Ischemic Attacks (TIA); Negative Seizures CARDIAC: Positive Cardiac Disorders, Myocardial Infarction (x2), Atrial Fibrillation, Angina, Coronary Artery Disease, Hypercholesterolemia, Congestive Heart Failure and Hypertension RESPIRATORY: Negative Chronic Obstructive Pulmonary Disease (COPD) or Asthma GASTROINTESTINAL: Negative Gastrointestinal Disorders GENITOURINARY: Positive Genitourinary Disorders, Renal Disease, Dialysis (MWF) and Benign Prostatic Hyperplasia MUSCULOSKELETAL: Positive Musculoskeletal Disorders and Arthritis ENT: Positive Cataracts ENDOCRINE: Positive Endocrine Disorders, Diabetes Mellitus Type 2 and Hypothyroidism; Negative Diabetes Mellitus Type 1 HEMATOLOGIC: Positive Blood Disorders and Anemia; Negative Sickle Cell Disease PSYCHO/SOCIAL: Positive Anxiety OTHER HISTORY: Positive Hospitalization ([place], surgery), Chicken Pox and Measles; Negative Autoimmune Disease, Shingles, Blood Transfusions, Blood Transfusion Reaction, Anesthesia Reactions or Cancer Family History FAMILY HISTORY: Positive Family Cardiac Disorders; Negative Family Psychiatric Problems, Family Respiratory Disorders, Family Gastrointestinal Problems, Family Cancer, Family Surgery or Family Anesthesia Reaction Surgical History SURGICAL: Positive Cardiac Surgery, Open Heart Surgery, Coronary Artery Bypass Graft, Coronary Stent (Dec 2022), Pacemaker, Angiogram and Auto Implanted Cardiovert Defib; Negative Joint Replacement OTHER SURGICAL HX: As in the history of present illness Social History SMOKING STATUS: Never smoker Meds Home Medications and Allergies Home Medications ?Medication ?Instructions ?Recorded ?Confirmed ?Type clopidogrel 75 mg tablet (Plavix) 75 mg PO QDAY 06/27/18 03/18/24 History levothyroxine 100 mcg tablet 150 mcg PO QDAY 01/27/21 03/18/24 History vitamin B complex-vitamin C-folic 1 tab PO QDAY 01/27/21 03/18/24 History acid 0.8 mg tablet (Nephro-Frances) allopurinol 100 mg tablet 100 mg PO QDAY 12/15/22 03/18/24 History alprazolam 0.5 mg tablet 0.5 mg PO QDAY PRN Anxiety 06/16/23 03/18/24 History amiodarone 200 mg tablet 200 mg PO DAILY 06/16/23 03/18/24 History atorvastatin 40 mg tablet 20 mg PO QPM 06/16/23 03/18/24 History carvedilol 6.25 mg tablet 6.25 mg PO BID 06/16/23 03/18/24 History furosemide 40 mg tablet 40 mg PO QAM 06/16/23 03/18/24 History linagliptin 5 mg tablet (Tradjenta) 5 mg PO QAM 06/16/23 03/18/24 History sacubitril 49 mg-valsartan 51 mg 2 tab PO BID 06/16/23 03/18/24 History tablet (Entresto) Allergies Allergy/AdvReac Type Severity Reaction Status Date / Time No Known Allergies Allergy Verified 06/17/23 09:33 Exam Vital Signs Temp Pulse Resp BP Pulse Ox O2 Del Method 36.2 C 65 21 H 108/58 L 95 Room Air 03/18/24 04:00 03/18/24 04:00 03/18/24 04:00 03/18/24 04:00 03/18/24 04:00 03/18/24 04:00 Narrative Exam GENERAL APPEARANCE: Patient seems to be comfortable, adequately hydrated and nourished. Currently seen in telemetry HEENT: EOMI, PERRLA NECK: Neck supple, no JVD or bruit CARDIOVASCULAR: Heart regular, no murmurs LUNGS/CHEST: Chest clear to auscultation. No rales, rhonchi, wheezing ABDOMEN: Soft, nontender, nondistended. No masses. Normal bowel sounds. EXTREMITIES: No edema, clubbing or cyanosis. + avf SKIN: Skin exam normal without any rashes MUSCULOSKELETAL: Musculoskeletal exam normal PSYCHIATRIC: Normal mood, affect LYMPHATICS: No lymphadenopathy noted NEUROLOGICAL : No neurological deficits Results Labs 03/18/24 05:32 03/18/24 05:32 Labs: Short CBC 03/17/24 03/18/24 Range/Units 14:09 05:32 WBC 11.0 H 9.9 (3.8-10.6) Thou/mm3 Hgb 12.4 L 10.7 L (13.5-16.0) g/dL Hct 37.2 L 31.7 L (41.0-53.0) % Plt Count 160 131 L (140-440) Thou/mm3 BMP 03/17/24 03/18/24 14:09 05:32 Sodium 134 L 136 Potassium 4.2 4.6 Chloride 98 99 Carbon Dioxide 29.1 27.1 BUN 47 H 60 H Creatinine 4.6 H* 5.1 H* D Glucose 186 H 142 H Calcium 9.3 9.0 Cardiac Enzymes 03/17/24 03/17/24 03/17/24 Range/Units 14:09 17:32 23:00 Troponin I 5.526 H* D 6.041 H* D 7.466 H* D (0.0-0.045) ng/mL 03/18/24 Range/Units 05:32 Troponin I 7.179 H* D (0.0-0.045) ng/mL Liver Function 03/17/24 03/18/24 Range/Units 14:09 05:32 Total Bilirubin 0.7 0.7 (0.3-1.2) mg/dL AST 50 H 51 H (0-34) U/L ALT 12 < 7 L (10-49) U/L Alkaline Phosphatase 149 H 125 H D (46-116) U/L Albumin 4.6 3.9 D (3.4-4.8) gm/dL Urine 03/17/24 Range/Units 14:20 Urine Color Yellow (Lt Yel-Yel) Urine Clarity Clear (Clear/Hazy) Urine pH 7.5 H (5.0-7.0) Ur Specific [place] 1.023 (1.001-1.035) Urine Protein 2+ A (Neg - Trace) Urine Glucose (UA) Negative (Negative) Assessment & Plan Assessment and plan (1) End stage chronic kidney disease: Status: Acute (2) Non-STEMI (non-ST elevated myocardial infarction): Status: Acute (3) Hypertension: Status: Acute (4) Anemia: Status: Acute (5) Diabetes: Status: Acute (6) Hyperlipidemia: Status: Acute Additional Assessment & Plan Additional Plan: (1) AMI Dr. Gutiérrez was consulted. Patient currently on heparin drip. Might need angiogram. 2) Atrial fibrillation Status: Acute Assessment and plan: He has A-fib with rate controlled. Dr. Ga placed him on plavix- held Low platelets noted. Currently on aspirin, heparin drip (3) Hypertension: Status: Acute Assessment and plan: on beta-korey, Entresto (4) ESRD Status: Acute Assessment and plan: ESRD secondary to diabetic nephropathy. ++ Right arm AV fistula Patient currently seen on dialysis. Tolerating dialysis without any problems. Hemodialysis for 3 hours, 2K, ultrafiltration 1 L, Epogen 6000, no heparin ordered. Plan of care discussed with the dialysis nurse. Please see dialysis flowsheet for further details. (5) hyperuricemia: On allopurinol (6) Anemia: Status: Acute Assessment and plan: Hemoglobin stable. Will monitor closely epo with dialysis today (7) Diabetes: Status: Acute Assessment and plan: Accu-Cheks, sliding scale. hold Tradjenta while n.p.o. (8) Hyperlipidemia: Status: Acute Assessment and plan: On statin Thank you Isai for allowing me to participate in the care of Mr. Casillas
[2024-03-18] MEDS: INSULIN LISPRO (AdmeLOG) 1 UNIT/0.01 ML UNIT SC ×2 (07:33→11:32)
[2024-03-18] MEDS: HYDROcodone/APAP 5/325 TABLET 1 TAB PO ×2 (07:36→18:29)
[2024-03-18] MEDS: Magnesium Sulfate 1 gm Ivpb 1 GM/100 ML BAG IV (09:04)
[2024-03-18] MEDS: carVEDILOL 3.125 MG TABLET 6.25 MG PO ×2 (09:05→18:28)
[2024-03-18] MEDS: ASPIRIN EC 81 MG TABEC PO (09:05)
[2024-03-18] MEDS: SACUBITRIL 24 MG/VALSARTAN 26 MG TABLET 1 TAB PO ×2 (10:20→20:26)
[2024-03-18 12:41] LABS: Partial Thromboplastin Time 39.1 Seconds (22.0-36.0)
--- NOTE | 2024-03-18 12:50 | ESPR_ITS ---
<Statement entered by Britton Bolaños MD - 03/19/24 05:14> I have personally seen and examined the patient separately on the above date of service and discussed the plan of care with the resident. I reviewed the resident Dr. Dowell consultation progress note and agree with the resident findings and plan in the note above and have also edited the documentation to reflect my findings and plan. 79-year-old male with a past medical history of severe CAD status post to CABG [1998 with 4 grafts in 2008 with 3 grafts as per patient], PCI to mid to distal LCx in 2017, recent PCI with 3 stents to the SVG to OM1 graft in December 2022 still with residual disease, residual severe 80% stenosis of the STAPLES to LAD anastomosis, ramona arteries showed 100% occluded RCA and mild disease of the LCx with patent stent, severe 90% stenosis of the proximal LAD as well as the proximal diagonal with faint collaterals to right, paroxysmal atrial fibrillation, sick sinus syndrome, Medtronic dual-chamber permanent pacemaker in 2020, severe systolic CHF with an EF of 30 to 35% in December 2022, moderate to severe RV dysfunction along with diastolic dysfunction, essential hypertension, diabetes mellitus, hyperlipidemia, end-stage renal disease on hemodialysis,, chronic anemia mostly from ESRD, hypothyroidism presented to the hospital for further evaluation of chest pain. Patient apparently was seen in his primary poultry sexer office Dr. Ga this morning as he had started to have severe chest pain around 6 PM yesterday and continued to have more chest pain in spite of the nitroglycerin. Patient still have the chest pain's office and a troponin was sent from his office and patient was sent to the emergency department for further evaluation. Patient denies any kind of shortness of breath or new leg swelling or orthopnea or PND denied any Fever or chills or cough or sputum production. Cardiology was called consulted as his troponins were elevated at 5.5. Patient is now chest pain-free during my examination. In the emergency department initial vitals showed blood pressure of 150/73 mmHg heart rate of 79/min, afebrile and saturations normal on room air speaking in full sentences, and hemoglobin 12.4 WBC 11 platelets 160 BUN 46 creatinine of 4.6 on dialysis, sodium 134, troponin 5.5 but the office troponin was 2.5 LFTs showed mild AST elevation at 50 and alk phos of 149. UA was negative. EKG performed in the emergency department showed paced rhythm, chest x-ray showed mild vascular congestion. Assessment and plan: 1. Acute coronary syndrome-NSTEMI type I with troponins of 5.5 on admission. Patient with severe CAD status post to CABG [1998 with 4 grafts in 2008 with 3 grafts as per patient], PCI to mid to distal LCx in 2017, recent PCI with 3 stents to the SVG to OM1 graft in December 2022 still with residual disease, residual severe 80% stenosis of the STAPLES to LAD anastomosis, ramona arteries showed 100% occluded RCA and mild disease of the LCx with patent stent, severe 90% stenosis of the proximal LAD as well as the proximal diagonal with faint collaterals to right. EKG with paced rhythm and the patient is chest pain-free at the present point of time but had severe chest pain yesterday evening until this morning. Patient is hemodynamically stable. Reviewed the catheterization images from 2017 as well as 2022. Patient does have residual disease as noted above with severe 80 to 90% stenosis of the STAPLES to LAD as well as severe ramona LAD, diagonal as well as RCA 100% occluded. The LCx is patent with mild disease. The SVG to OM1 graft result was suboptimal in 2022 and probably is occluded at the present point of time which is probably the reason for the NSTEMI along with other severe disease. Patient will need left heart cardiac catheterization with possible PCI but patient does not want to have any cardiac catheterization after his last PCI done in 2022 because of significant pain and blood leak from his prior right femoral cardiac catheterizations. He wants to be treated only medically at the present point of time. Patient is chest pain-free and will continue with heparin drip aspirin, Plavix, high intensity statin and beta-korey if BP permissible. If the patient needs PCI patient will need a high risk PCI with intervention to the STAPLES to LAD as it would be the graft to salvage but would need to be done at [facility] or a tertiary center given his severe biventricular failure. If the SVG to OM1 is occluded which should be only medical treatment along with the rest of the disease. Patient to be managed medically until his primary poultry sexer returns from vacation who knows him well for more than 25 years and can have further rate recommendations or discussions regarding the complex PCI that he needs. 03/18/2024-patient complained of some chest pressure at rest during dialysis which improved with the pain medication. Again we had a detailed discussion today with the patient regarding the need for possible high risk PCI which will be done at tertiary care center but patient completely refused the procedure and does not want to do and only wants to continue medical management. Continue heparin drip for 48 hours along with aspirin, Plavix, high intensity statin and beta-korey if BP is permissible. Patient informed us that he did discuss with his primary poultry sexer that he would not want any further procedures and recommended to discuss with them again. 2. History of paroxysmal atrial fibrillation, sick sinus syndrome, Medtronic dual-chamber permanent pacemaker in 2020-patient continues to be in paced rhythm at the present point of time. Rate is well-controlled. Patient is on amiodarone 200 mg daily which should be continued and patient should be on beta- korey increase metoprolol to 25 mg once daily. Unclear why patient is not on anticoagulation given his history of paroxysmal atrial fibrillation and he has elevated chads Vascor. Continue heparin drip for now. Patient needs to be on Eliquis 2.5 mg twice daily along with Plavix and aspirin can be discontinued if oral anticoagulation is pursued as outpatient. 3. Severe systolic CHF with an EF of 30 to 35% in December 2022, moderate to severe RV dysfunction, mild valvular abnormalities with mild to moderate PAH. Patient needs to be on goal-directed medical therapy and should be on metoprolol XL Entresto and spironolactone. Patient is end-stage renal disease on hemodialysis and continue fluid management with dialysis. Does not appear to be severely volume overloaded at the present point of time strict input output Daily 20 g odium diet. 4. End-stage renal disease on hemodialysis 5. Hypertension 6. Hyperlipidemia 7. Hypothyroidism 8. Diabetes mellitus type 2, 9. Chronic anemia 10. BPH 11. Possible gout Management of rest of the medical conditions as per primary team and other consultants. Thank you for the consult and allowing me to participate in the care of the patient. Cardiology will continue to follow. Britton Bolaños M.D. Interventional Cardiology Documentation for date of: 03/18/24 Subjective Subjective Interval history: Patient examined at bedside today with family present. Telemetry monitored reviewed, patient is in NSR rate has been in the 60s, and occasional PVC. He reports he is doing well, denies having any chest pain or shortness of breath. He reiterates that he does not want to have a cardiac catheterization done and wants medical treatment. He also confirms that he has had 2 open heart surgeries, stents placed multiple times and also had a pacemaker placed in 2020. He has not noticed any swelling in his legs, headache or any vomiting. No other complaints at this time Exam Vital Signs Temp Pulse Resp BP Pulse Ox O2 Del Method 97.5 F 67 20 129/62 95 Room Air 03/18/24 08:00 03/18/24 09:05 03/18/24 08:00 03/18/24 09:05 03/18/24 08:00 03/18/24 08:00 Narrative Exam General: AAOx3, NAD, pleasant belarusian speaking male HEENT: Moist mucous membranes, conjunctiva clear, EOMI, PERRLA, Cardiovascular: S1, S2, radial pulses +2 bilat, RRR, no JVD present Pulmonary: CTAB bilat no cough, no wheezing GI: No tenderness to light or deep palpitation, no guarding, rigidity, rebound tenderness or distension Extremities: No presence of trace or pitting edema in lower extremities bilaterally, dorsalis pedis pulses +2 bilaterally, Fistula in RUE Neuro: AAOx3, no focal motor or sensory deficits in the UE or LE bilat Psych: Good judgement, thought and behavior. Cooperative Objective Labs 03/18/24 05:32 03/18/24 05:32 Labs: Laboratory Results - last 24 hr 03/17/24 03/17/24 03/17/24 14:09 14:20 17:32 WBC 11.0 H RBC 3.81 L Hgb 12.4 L Hct 37.2 L MCV 98 MCH 32.5 MCHC 33.3 RDW Std Deviation 43.2 Plt Count 160 Neut % (Auto) 71 Lymph % (Auto) 18 Early % (Auto) 8 Eos % (Auto) 2 Baso % (Auto) 1 Neut # (Auto) 7.7 Lymph # (Auto) 2.0 Early # (Auto) 0.9 H Eos # (Auto) 0.2 Baso # (Auto) 0.1 Immature Gran # (Auto) 0.02 H Absolute Nucleated RBC 0.00 Immature Gran % 0 Nucleated RBC % 0 PT 11.6 INR 1.1 APTT 29.4 Sodium 134 L Potassium 4.2 Chloride 98 Carbon Dioxide 29.1 Anion Gap 7 BUN 47 H Creatinine 4.6 H* Estim Creat Clear Calc Not Performed. eGFR 12 L* BUN/Creatinine Ratio 10 L Glucose [address] Glu mg/dL Hemoglobin A1c Calculated Osmolality 285 Calcium 9.3 Corrected Calcium 9.3 Phosphorus Magnesium Total Bilirubin 0.7 AST 50 H ALT 12 Alkaline Phosphatase 149 H Troponin I 5.526 H* D 6.041 H* D Total Protein 9.2 H Albumin 4.6 Globulin 4.6 H Albumin/Globulin Ratio 1.0 L Triglycerides Cholesterol LDL Cholesterol, Calc HDL Cholesterol Cholesterol/HDL Ratio Ur Collection Type Clean Catch Urine Color Yellow Urine Clarity Clear Urine pH 7.5 H Ur Specific [place] 1.023 Urine Protein 2+ A Urine Glucose (UA) Negative Urine Ketones Negative Urine Blood 1+ A Urine Nitrite Negative Urine Bilirubin Negative Urine Urobilinogen (Auto) 3.0 Ur Leukocyte Esterase Positive Urine RBC 4 H Urine WBC 25 H Ur Squamous Epith Cells 3 Urine Bacteria None Blood Type O Positive Antibody Screen NEGATIVE Blood Bank Wristband ID Yes 03/17/24 03/18/24 03/18/24 23:00 05:32 12:04 WBC 9.9 RBC 3.29 L Hgb 10.7 L Hct 31.7 L MCV 96 MCH 32.5 MCHC 33.8 RDW Std Deviation 41.8 Plt Count 131 L Neut % (Auto) 71 Lymph % (Auto) 17 Early % (Auto) 8 Eos % (Auto) 3 Baso % (Auto) 1 Neut # (Auto) 7.0 Lymph # (Auto) 1.6 Early # (Auto) 0.8 Eos # (Auto) 0.3 Baso # (Auto) 0.1 Immature Gran # (Auto) 0.03 H Absolute Nucleated RBC 0.00 Immature Gran % 0 Nucleated RBC % 0 PT 12.0 INR 1.1 APTT 52.8 H D 42.7 H D 39.1 H Sodium 136 Potassium 4.6 Chloride 99 Carbon Dioxide 27.1 Anion Gap 10 BUN 60 H Creatinine 5.1 H* D Estim Creat Clear Calc Not Performed. eGFR 11 L* BUN/Creatinine Ratio [address] Glu mg/dL 137 H Hemoglobin A1c 6.4 H Calculated Osmolality 290 Calcium 9.0 Corrected Calcium 9.1 Phosphorus 3.5 Magnesium 1.8 Total Bilirubin 0.7 AST 51 H ALT < 7 L Alkaline Phosphatase 125 H D Troponin I 7.466 H* D 7.179 H* D Total Protein 7.6 Albumin 3.9 D Globulin 3.7 H Albumin/Globulin Ratio 1.1 L Triglycerides 103 Cholesterol 142 LDL Cholesterol, Calc 91 HDL Cholesterol 30 L Cholesterol/HDL Ratio 4.7 Ur Collection Type Urine Color Urine Clarity Urine pH Ur Specific [place] Urine Protein Urine Glucose (UA) Urine Ketones Urine Blood Urine Nitrite Urine Bilirubin Urine Urobilinogen (Auto) Ur Leukocyte Esterase Urine RBC Urine WBC Ur Squamous Epith Cells Urine Bacteria Blood Type Antibody Screen Blood Bank Wristband ID Quality Measures Quality Measures none Advance care planning discussed with:: patient Assessment & Plan Assessment Current Active Medications: Generic Name Dose Route Start Last Admin Trade Name Freq PRN Reason Stop Dose Admin Acetaminophen 650 mg 03/17/24 17:10 Acetaminophen 325 Mg Tablet PO 04/16/24 17:09 Q6H PRN pain 1-3 and Fever >100.4 Hydrocodone Bitart/Acetaminophen 1 tab 03/17/24 17:10 03/18/24 07:36 Hydrocodone/Apap 5/325 Tablet PO 03/22/24 17:09 1 tab Q4HR PRN Administration PAIN SCALE 4-6 (Moderate Aspirin 81 mg 03/18/24 09:00 03/18/24 09:05 Aspirin Ec 81 Mg Tabec PO 04/17/24 08:59 81 mg QDAY ADOLFO Administration Atorvastatin Calcium 40 mg 03/17/24 21:00 03/17/24 21:22 Atorvastatin Calcium 20 Mg Tablet PO 04/16/24 20:59 40 mg HS ADOLFO Administration Carvedilol 6.25 mg 03/18/24 08:00 03/18/24 09:05 Carvedilol 3.125 Mg Tablet PO 04/17/24 07:59 6.25 mg BIDWM ADOLFO Administration Dextrose 25 ml 03/17/24 17:10 Dextrose 50%-Water Inj 50 Ml Syringe IV 04/16/24 17:09 Q15MIN PRN BG 50-70 responsive npo pt Dextrose 50 ml 03/17/24 17:10 Dextrose 50%-Water Inj 50 Ml Syringe IV 04/16/24 17:09 Q15MIN PRN BG <50 OR BG <70 & pt unresponsive Epoetin Robert 10,000 unit 03/18/24 14:00 Epoetin Robert-Epbx Inj 40,000 Unit/Ml Vial (Esrd) SC 03/18/24 14:01 X1 ONE Glucagon 1 mg 03/17/24 17:10 Glucagon Inj 1 Mg Vial IM Q15MIN PRN BG <70, and no IV access Heparin Sodium/Dextrose 25,000 unit in 250 mls @ 7.62 mls/hr 03/17/24 16:45 03/18/24 06:32 Heparin In D5w Ivpb IV 03/31/24 16:44 14 units/kg/hr .Q24H ADOLFO 8.89 mls/hr Titration Protocol 12 UNITS/KG/HR Insulin Human Lispro 0 unit 03/18/24 07:30 03/18/24 11:32 Insulin Lispro (Admelog) 1 Unit/0.01 Ml Unit SC 04/17/24 07:29 2 unit AC ADOLFO Administration Protocol Levothyroxine Sodium 25 mcg/ 150 mcg 03/18/24 06:00 03/18/24 05:09 Levothyroxine Sodium 125 mcg PO 04/17/24 05:59 150 mcg ACBR ADOLFO Administration Morphine Sulfate 1 mg 03/17/24 17:10 Morphine Sulf Inj 10 Mg/Ml Vial IVP 03/22/24 17:09 Q4H PRN PAIN SCALE 7-10 (Severe Ondansetron HCl 4 mg 03/17/24 17:10 Ondansetron Inj 2 Mg/Ml Inj 2 Ml IV 04/16/24 17:09 Q6H PRN NAUSEA OR VOMITING Protocol Pharmacy Consult 1 each 03/17/24 17:23 Pharmacy Renal Dose Adjustment 1 Ea XX 04/16/24 17:22 PRN PRN CONSULT Sacubitril/Valsartan 1 tab 03/18/24 10:15 03/18/24 10:20 Sacubitril 24 Mg/Valsartan 26 Mg Tablet PO 04/17/24 10:14 1 tab BID ADOLFO Administration Plan Assessment 79-year-old male with past medical history of CAD s/p CABG, HFrEF (EF 30 to 35% 2022), A-fib s/p pacemaker, ESRD (HD on MWF), DM 2, hypothyroidism, hyperlipidemia, and hypertension was admitted to hospital on 03/17/2024 for elevated troponins and chest pain. #NSTEMI #Elevated Troponin, improving #Hx of CAD s/p quadruple and triple bypass #History of stents #Hx of HFrEF (EF 30 to 35% in 2022) Patient complaining of typical chest pain that was relieved with nitroglycerin Dr Ga symptom after his troponins done in office were elevated and complaining of chest pain Patient had PCI done in 01/2023 which patient had 3 drug-eluting stents. He had 80% distal anastomotic site stenosis of STAPLES to the LAD, totally occluded vein bypass graft to the diagonal branch as well as the RCA, 10 percent occlusion of the proximal RCA, 90% stenosis in the mid portion of the LAD, 99% stenosis of the first diagonal branch of the LAD, 100% occlusion of the mid LAD ramona vessels, and 100% occlusion of the ostium of the second obtuse marginal branch of the circumflex coronary artery with patent previously stented midportion about left circumflex coronary artery after the origin of the second obtuse marginal branch If patient needs PCI he will need a high risk PCI with intervention to the STAPLES to the LAD as it would be a graft to salvage but would need to be done at a tertiary center [facility] considering his biventricular failure. If the SVG to OM1 is occluded which should only be the medical treatment along with the rest of the disease. We will continue medical management until his poultry sexer, Dr. Ga, returns from vacation and he can further discuss options with him. Today also reiterated that he does not want any catheterization and he wants just medical management at this point Troponins were 3.906 and up trended to 5.526 and peaked at 7.4, will not check any more Plan: ? Continue heparin drip for 48 hours ? Continue Lipitor 40 ? Continue with aspirin #Hx of HFrEF (EF 30 to 35% in 2022) #Hx of A-fib s/p pacemaker Patient is rate controlled at this time Echo in December 2022 showed normal LV side, severe systolic dysfunction estimated ejection fraction of 30 to 35% CHADVASC: 6 points HAS-BLED: 2 points We favor metoprolol vs coreg, but okay to continue with coreg Plan: ?Continue home Coreg 6.25 mg twice daily -Primary team resumed Entresto ?Follow-up echo ?Keep magnesium and potassium above 2 and 4 respectively #Hx of hyperlipidemia Total 142, LDL ~40 Plan: ?Continue Lipitor 40 #Hx of DM2 #ESRD (HD on MWF) #Normocytic normochromic anemia #Mild leukocytosis #Hx of hypothyroidism Above management by primary hospitalist team Patient seen and care discussed with my attending physician, Dr. Mami Emerson, PGY-1
--- NOTE | 2024-03-18 14:34 | ESPR_ITS ---
Documentation for date of: 03/18/24 Subjective Subjective Interval history: The patient was interviewed and examined at the bedside this morning. He reported doing much better. He denied any chest pain, SOB, lightheadedness, abdominal pain, fever or chills, nausea or vomiting or any leg swelling. Exam Vital Signs Temp Pulse Resp BP Pulse Ox O2 Del Method 97.5 F 65 18 129/62 95 Room Air 03/18/24 08:00 03/18/24 13:58 03/18/24 13:58 03/18/24 09:05 03/18/24 08:00 03/18/24 08:00 Narrative Exam General: No acute distress, Alert and Oriented x 3 HEENT: Moist mucous membranes, oropharynx clear Neck: Supple, No masses, No JVD CVS: S1S2 Regular rate and rhythm, No murmurs, rubs or gallops Lungs: Clear to auscultation with no accessory use, no wheeze no rhonchi Abd: Soft, NT/ND, +BS, no organomegaly Ext: No edema, warm and well perfused Skin: No rash Psych: Appropriate mood and affect Objective Labs 03/19/24 05:03 03/19/24 05:03 Labs: Laboratory Results - last 24 hr 03/17/24 03/17/24 03/17/24 14:09 14:20 17:32 WBC 11.0 H RBC 3.81 L Hgb 12.4 L Hct 37.2 L MCV 98 MCH 32.5 MCHC 33.3 RDW Std Deviation 43.2 Plt Count 160 Neut % (Auto) 71 Lymph % (Auto) 18 [place] % (Auto) 8 Eos % (Auto) 2 Baso % (Auto) 1 Neut # (Auto) 7.7 Lymph # (Auto) 2.0 [place] # (Auto) 0.9 H Eos # (Auto) 0.2 Baso # (Auto) 0.1 Immature Gran # (Auto) 0.02 H Absolute Nucleated RBC 0.00 Immature Gran % 0 Nucleated RBC % 0 PT 11.6 INR 1.1 APTT 29.4 Sodium 134 L Potassium 4.2 Chloride 98 Carbon Dioxide 29.1 Anion Gap 7 BUN 47 H Creatinine 4.6 H* Estim Creat Clear Calc Not Performed. eGFR 12 L* BUN/Creatinine Ratio 10 L Glucose [address] Glu mg/dL Hemoglobin A1c Calculated Osmolality 285 Calcium 9.3 Corrected Calcium 9.3 Phosphorus Magnesium Total Bilirubin 0.7 AST 50 H ALT 12 Alkaline Phosphatase 149 H Troponin I 5.526 H* D 6.041 H* D Total Protein 9.2 H Albumin 4.6 Globulin 4.6 H Albumin/Globulin Ratio 1.0 L Triglycerides Cholesterol LDL Cholesterol, Calc HDL Cholesterol Cholesterol/HDL Ratio Ur Collection Type Clean Catch Urine Color Yellow Urine Clarity Clear Urine pH 7.5 H Ur Specific [place] 1.023 Urine Protein 2+ A Urine Glucose (UA) Negative Urine Ketones Negative Urine Blood 1+ A Urine Nitrite Negative Urine Bilirubin Negative Urine Urobilinogen (Auto) 3.0 Ur Leukocyte Esterase Positive Urine RBC 4 H Urine WBC 25 H Ur Squamous Epith Cells 3 Urine Bacteria None Blood Type O Positive Antibody Screen NEGATIVE Blood Bank Wristband ID Yes 03/17/24 03/18/24 03/18/24 23:00 05:32 12:04 WBC 9.9 RBC 3.29 L Hgb 10.7 L Hct 31.7 L MCV 96 MCH 32.5 MCHC 33.8 RDW Std Deviation 41.8 Plt Count 131 L Neut % (Auto) 71 Lymph % (Auto) 17 [place] % (Auto) 8 Eos % (Auto) 3 Baso % (Auto) 1 Neut # (Auto) 7.0 Lymph # (Auto) 1.6 [place] # (Auto) 0.8 Eos # (Auto) 0.3 Baso # (Auto) 0.1 Immature Gran # (Auto) 0.03 H Absolute Nucleated RBC 0.00 Immature Gran % 0 Nucleated RBC % 0 PT 12.0 INR 1.1 APTT 52.8 H D 42.7 H D 39.1 H Sodium 136 Potassium 4.6 Chloride 99 Carbon Dioxide 27.1 Anion Gap 10 BUN 60 H Creatinine 5.1 H* D Estim Creat Clear Calc Not Performed. eGFR 11 L* BUN/Creatinine Ratio [address] Glu mg/dL 137 H Hemoglobin A1c 6.4 H Calculated Osmolality 290 Calcium 9.0 Corrected Calcium 9.1 Phosphorus 3.5 Magnesium 1.8 Total Bilirubin 0.7 AST 51 H ALT < 7 L Alkaline Phosphatase 125 H D Troponin I 7.466 H* D 7.179 H* D Total Protein 7.6 Albumin 3.9 D Globulin 3.7 H Albumin/Globulin Ratio 1.1 L Triglycerides 103 Cholesterol 142 LDL Cholesterol, Calc 91 HDL Cholesterol 30 L Cholesterol/HDL Ratio 4.7 Ur Collection Type Urine Color Urine Clarity Urine pH Ur Specific [place] Urine Protein Urine Glucose (UA) Urine Ketones Urine Blood Urine Nitrite Urine Bilirubin Urine Urobilinogen (Auto) Ur Leukocyte Esterase Urine RBC Urine WBC Ur Squamous Epith Cells Urine Bacteria Blood Type Antibody Screen Blood Bank Wristband ID Quality Measures Quality Measures none Advance care planning discussed with:: patient Assessment & Plan Assessment Current Active Medications: Generic Name Dose Route Start Last Admin Trade Name Freq PRN Reason Stop Dose Admin Acetaminophen 650 mg 03/17/24 17:10 Acetaminophen 325 Mg Tablet PO 04/16/24 17:09 Q6H PRN pain 1-3 and Fever >100.4 Hydrocodone Bitart/Acetaminophen 1 tab 03/17/24 17:10 03/18/24 07:36 Hydrocodone/Apap 5/325 Tablet PO 03/22/24 17:09 1 tab Q4HR PRN Administration PAIN SCALE 4-6 (Moderate Aspirin 81 mg 03/18/24 09:00 03/18/24 09:05 Aspirin Ec 81 Mg Tabec PO 04/17/24 08:59 81 mg QDAY ADOLFO Administration Atorvastatin Calcium 40 mg 03/17/24 21:00 03/17/24 21:22 Atorvastatin Calcium 20 Mg Tablet PO 04/16/24 20:59 40 mg HS ADOLFO Administration Carvedilol 6.25 mg 03/18/24 08:00 03/18/24 09:05 Carvedilol 3.125 Mg Tablet PO 04/17/24 07:59 6.25 mg BIDWM ADOLFO Administration Dextrose 25 ml 03/17/24 17:10 Dextrose 50%-Water Inj 50 Ml Syringe IV 04/16/24 17:09 Q15MIN PRN BG 50-70 responsive npo pt Dextrose 50 ml 03/17/24 17:10 Dextrose 50%-Water Inj 50 Ml Syringe IV 04/16/24 17:09 Q15MIN PRN BG <50 OR BG <70 & pt unresponsive Glucagon 1 mg 03/17/24 17:10 Glucagon Inj 1 Mg Vial IM Q15MIN PRN BG <70, and no IV access Heparin Sodium/Dextrose 25,000 unit in 250 mls @ 7.62 mls/hr 03/17/24 16:45 03/18/24 13:17 Heparin In D5w Ivpb IV 03/31/24 16:44 16 units/kg/hr .Q24H ADOLFO 10.16 mls/hr Titration Protocol 12 UNITS/KG/HR Insulin Human Lispro 0 unit 03/18/24 07:30 03/18/24 11:32 Insulin Lispro (Admelog) 1 Unit/0.01 Ml Unit SC 04/17/24 07:29 2 unit AC ADOLFO Administration Protocol Levothyroxine Sodium 25 mcg/ 150 mcg 03/18/24 06:00 03/18/24 05:09 Levothyroxine Sodium 125 mcg PO 04/17/24 05:59 150 mcg ACBR ADOLFO Administration Morphine Sulfate 1 mg 03/17/24 17:10 Morphine Sulf Inj 10 Mg/Ml Vial IVP 03/22/24 17:09 Q4H PRN PAIN SCALE 7-10 (Severe Ondansetron HCl 4 mg 03/17/24 17:10 Ondansetron Inj 2 Mg/Ml Inj 2 Ml IV 04/16/24 17:09 Q6H PRN NAUSEA OR VOMITING Protocol Pharmacy Consult 1 each 03/17/24 17:23 Pharmacy Renal Dose Adjustment 1 Ea XX 04/16/24 17:22 PRN PRN CONSULT Sacubitril/Valsartan 1 tab 03/18/24 10:15 03/18/24 10:20 Sacubitril 24 Mg/Valsartan 26 Mg Tablet PO 04/17/24 10:14 1 tab BID ADOLFO Administration Plan 79-year-old male with past medical history of CAD s/p CABG, HFrEF (EF 30 to 35% 2022), A-fib s/p pacemaker, ESRD (HD on MWF), DM 2, hypothyroidism, hyperlipidemia, and hypertension was admitted to hospital on 03/17/2024 for elevated troponins and chest pain. #Elevated Troponin #Typical chest pain #workup for ACS #Hx of CAD s/p CABG ?Patient complaining of substernal chest pain with radiated to his back and was relieved with nitroglycerin ? Troponins were 3.906 and up trended to 5.526 ?EKG which showed some ST elevations in lead III, aVF, V3, V4, and V5. ?ED physician communicated with patient's insurance verification representative who stated to admit the patient and to consult the on-call insurance verification representative. On-call insurance verification representative stated to admit the patient and start heparin drip. Plan: ? Heparin drip started ?Atorvastatin 20 mg at bedtime - Aspirin 81mg daily ? Trend troponins every 6 hours ?Cardiology consulted, appreciate recommendations ? Will continue to monitor #ESRD (HD on MWF) ? Patient was supposed to get hemodialysis today, but skipped hemodialysis to go to his insurance verification representative. ? Patient is BUN was 47 and creatinine 4.6 on admission ? Patient follows up with [facility] outpatient Plan: ?Hemodialysis today ? Avoid nephrotoxic agents ? Renally dose medications ? Nephrology consulted, appreciate recommendations ? Will continue monitor #Normocytic normochromic anemia ?Patient's hemoglobin was 12.4 on admission ? Patient has a history of chronic anemia with base hemoglobin at 13.2 ?No active signs of bleeding Plan: ?Will transfuse hemoglobin less than 7 ? Will continue to monitor #Mild leukocytosis, resolved ?WBC 11 on admission ? Most likely reactive #Hx of HFrEF (EF 30 to 35% in 2022) ? Patient is not on acute decompensated heart failure exacerbation at this time Plan: -Carvedilol 6.25 Mg twice daily and Entresto twice daily started ? Echo ordered ?Cardiology consulted, appreciate recommendations ? Will continue to monitor #Hx of A-fib s/p pacemaker ? EKG showed paced rhythm with some ST elevations in lead III, aVF, V3, V4, and V5 ? Patient rate controlled at this time Plan: ? Will await medication reconciliation for starting amiodarone 200 mg daily ? Cardiology consulted, appreciate recommendations #Hx of DM2 ? Glucose 186 on admission ?A1c 6.4 Plan: ? ISS ? Accu-Cheks and hypoglycemia protocol ordered ? Will continue to monitor #Hx of hyperlipidemia ? Atorvastatin 40 mg nightly started #Hx of hypothyroidism ? Restarted patient's levothyroxine 150 mg Disposition: Patient admitted to telemetry for elevated troponins and chest pain on heparin drip Diet: cardiac/carb cons GI prophylaxis: protonix DVT prophylaxis: Heparin drip Code:Full The patient's management plan was discussed with my attending physician MD Emiliano Pichardo MD, PGY2 Attending Provider Attestation/Addendum I have examined the patient, reviewed labs and imaging findings, discussed the case with the resident(s), and reviewed entered orders. I agree with the plan of care as outlined in this note, with these additional summaries/recommendations: Patient is a 79-year-old male with a medical history of CAD status post CABG, CHF, paroxysmal atrial fibrillation with slow ventricular response status post pacemaker, ESRD on hemodialysis MWF via right upper extremity AV fistula, anxiety, hypothyroidism, hyperlipidemia, and primary hypertension who presents to [facility] emergency department on 03/17/2024 with chief complaint of substernal chest pain with elevated troponins and EKG changes and thus hospitalist team consulted for continuation of care. #NSTEMI Type I # History of CAD with CABG Presented with chest pain Given typical features and CAD history this is concerning for ACS or plaque rupture BAO score: 5 points indicating 26% risk of all cause mortality, new or recurrent MT, severe recurrent ischemia requiring urgent revascularization Pat score: 159 points indicating 26% probability of from admission to 6 months Troponin elevated to 5.526 (of note troponin chronically elevated likely secondary to ESRD) EKG demonstrated paced rhythm, rate 70, ST changes in aVF and V3-V6 Work-up: Telemetry, troponin until downtrending, serial EKGs, TTE CAD risk factor screening: A1c, lipid panel, TSH Treatment: Titrate O2 as needed for symptoms Antiplatelet: S/p ASA 325 mg, Continue ASA 81mg PO QD, appreciate cardio recs on Plavix Anticoagulation: Continue heparin gtt. Plaque stabilization: Atorvastatin 40 mg p.o. at bedtime Cardiac remodeling: Continue Coreg 6.25 mg p.o. twice daily and Entresto We will consider adding IV morphine as needed or nitroglycerin as needed if chest pain develops again Plan: Cardiology following. Troponin peaked 7.179. Patient declines PCI intervention and will continue above medications. # History of CHF #Hx of A-fib Echocardiogram from 12/15/2022 showed severe systolic dysfunction with estimated EF of 30 to 35%. Patient does not appear to be in acute exacerbation at this time. Plan: Continue Coreg & Entresto in AM and no need for diuresis as patient is dialysis dependent. Echocardiogram ordered and cardiology following. Strict I's and O's. # End-stage renal disease History of ESRD on HD Wednesday via right upper extremity AV fistula Plan: Nephrology following with plans to resume hemodialysis inpatient # Hypothyroidism TSH and free T4 ordered Plan: Continue levothyroxine 150mcg # Hyperlipidemia Plan: Continue atorvastatin # Anxiety Plan: continue home anxiolytics Dr. Perry
[2024-03-18] MEDS: EPOETIN ALFA-EPBX INJ 40,000 UNIT/ML VIAL (ESRD) 10000 UNIT SC (16:13)
[2024-03-18 19:19] LABS: Partial Thromboplastin Time 42.4 Seconds (22.0-36.0)
[2024-03-18] MEDS: Heparin/D5w 25K 250 ML Ivpb 25,000 UNIT/250 ML BAG 11.431 UNIT IV (20:25)
[2024-03-18] MEDS: ATORVASTATIN CALCIUM 20 MG TABLET 40 MG PO (20:26)
[2024-03-19] VITALS (10 sets, daily range): BP systolic 87–104; BP diastolic 46–66; PULSE 60–68; RESP 12–97; TEMP 36.1–36.8; O2SAT 94–98
[2024-03-19 02:26] LABS: Partial Thromboplastin Time 74.3 Seconds (22.0-36.0)
[2024-03-19] MEDS: LEVOTHYROXINE SODIUM 150 MCG PO (05:11)
[2024-03-19 05:54] LABS: Basophils # (Auto) 0.1 Thou/mm3 (0.0-0.2); Basophils % (Auto) 1 % (0-2.5); Eosinophils # (Auto) 0.2 Thou/mm3 (0.0-0.5); Eosinophils % (Auto) 2 % (0-10); Hematocrit 31.4 % (41.0-53.0); Hemoglobin 10.6 g/dL (13.5-16.0); Immature Granulocytes % (Auto) 1 % (0-0); Immature Granulocytes Auto 0.05 Thou/mm3 (0.00-0.00); Lymphocytes # (Auto) 1.9 Thou/mm3 (1.0-4.8); Lymphocytes % (Auto) 18 % (10-50); Mean Corpuscular HGB Conc 33.8 g/dl (31.0-37.0); Mean Corpuscular Hemoglobin 32.8 pg (25.0-35.0); Mean Corpuscular Volume 97 fL (80-100); Monocytes # (Auto) 0.9 Thou/mm3 (0.0-0.8); Monocytes % (Auto) 9 % (0-12); Neutrophils # (Auto) 7.3 Thou/mm3 (1.8-7.7); Neutrophils % (Auto) 71 % (37-80); Nucleated Red Blood Cell % 0 /100 WBC (0); Platelet Count 131 Thou/mm3 (140-440); Red Blood Count 3.23 Miln/mm3 (4.50-5.90); White Blood Count 10.4 Thou/mm3 (3.8-10.6)
[2024-03-19 06:25] LABS: Alanine Aminotransferase 13 U/L (10-49); Albumin, Serum 3.9 gm/dL (3.4-4.8); Albumin/Globulin Ratio 1.1 (1.2-2.2); Alkaline Phosphatase 122 U/L (46-116); Anion Gap 10 (7-16); Aspartate Amino Transferase 40 U/L (0-34); BUN/Creatinine Ratio 9 Ratio (12-20); Bilirubin,Total 0.9 mg/dL (0.3-1.2); Blood Urea Nitrogen 40 mg/dL (9-23); Calcium (Corrected) 9.1 mg/dL (8.5-10.1); Carbon Dioxide 29.8 mMol/L (20.0-31.0); Chloride 95 mMol/L (98-107); Creatinine (Component) 4.5 mg/dL (0.6-1.3); Globulin 3.6 gm/dL (2.3-3.5); Glucose 150 mg/dL (74-106); INR 1.2 (0.9-1.3); Magnesium 1.9 mg/dL (1.6-2.6); Osmolality,Calculated 282 (275-295); Partial Thromboplastin Time 81.4 Seconds (22.0-36.0); Phosphorous 3.5 mg/dL (2.4-5.1); Potassium 4.4 mMol/L (3.4-5.1); Prothrombin Time 12.8 Seconds (9.0-12.2); Sodium 135 mMol/L (136-145); Total Protein 7.5 gm/dL (5.7-8.2); eGFR 12 See Note
[2024-03-19] MEDS: INSULIN LISPRO (AdmeLOG) 1 UNIT/0.01 ML UNIT SC ×2 (07:54→12:26)
[2024-03-19] MEDS: Magnesium Sulfate 1 gm Ivpb 1 GM/100 ML BAG IV (08:04)
[2024-03-19] MEDS: AMIODARONE HCL 200 MG TABLET PO (08:05)
[2024-03-19] MEDS: SACUBITRIL 24 MG/VALSARTAN 26 MG TABLET 1 TAB PO ×2 (08:05→20:05)
[2024-03-19] MEDS: ASPIRIN EC 81 MG TABEC PO (08:05)
[2024-03-19] MEDS: CLOPIDOGREL BISULFATE 75 MG TABLET PO (08:05)
[2024-03-19 10:26] LABS: Partial Thromboplastin Time > 139.0 Seconds (22.0-36.0)
--- NOTE | 2024-03-19 11:50 | PD.RESPRO ---
Documentation for date of: 03/19/24 Subjective Subjective Interval history: Patient was examined bedside this morning, he was comfortably sleeping in bed. Denies any chest pain. We are pending Dr. Oliveira recommendation most likely tomorrow, and the patient denies coronary. Will continue the current treatment for now. Exam Vital Signs Temp Pulse Resp BP Pulse Ox O2 Del Method 97.1 F 60 24 H 104/56 L 96 Room Air 03/19/24 08:00 03/19/24 08:21 03/19/24 08:00 03/19/24 08:21 03/19/24 08:00 03/19/24 08:00 Narrative Exam GENERAL: Comfortable adult seen resting comfortably in hospital bed, no acute distress VITALS: All vitals were reviewed and the pulse ox is 98% on room air HEENT: Normocephalic, atraumatic. Pupils are equal and reactive. Oral mucosa is moist. NECK: Supple, nontender, no JVD CHEST: Symmetrical, atraumatic and with equal expansion ,Nontender on palpation CARDIOVASCULAR: Heart regular rhythm & rate. S1/S2. no murmur or gallop rub or extra beats. LUNGS: Clear to auscultation bilaterally with symmetrical chest rise. No laboring tachypnea or wheezing. No intercostal subcostal retraction. No rales and no rhonchi. ABDOMEN: Soft, flat, nontender to palpation, no guarding or rebound tenderness. Active and normal bowel sounds. EXTREMITIES:Moves all 4 extremities,No B/L LE edema. SKIN: Warm and dry, no jaundice or rashes noted. NEURO: Patient is AO x 3, Cranial nerves II through XII grossly intact. There is no focal neurologic deficits noted. PSYCHIATRIC: Patient is in normal mood, cooperative, no SI or HI or hallucinations. Objective Labs 03/20/24 05:25 03/20/24 05:25 Labs: Laboratory Results - last 24 hr 03/18/24 03/18/24 03/19/24 12:04 18:53 01:47 WBC RBC Hgb Hct MCV MCH MCHC RDW Std Deviation Plt Count Neut % (Auto) Lymph % (Auto) [place] % (Auto) Eos % (Auto) Baso % (Auto) Neut # (Auto) Lymph # (Auto) [place] # (Auto) Eos # (Auto) Baso # (Auto) Immature Gran # (Auto) Absolute Nucleated RBC Immature Gran % Nucleated RBC % PT INR APTT 39.1 H 42.4 H 74.3 H D Sodium Potassium Chloride Carbon Dioxide Anion Gap BUN Creatinine Estim Creat Clear Calc eGFR BUN/Creatinine Ratio Glucose Calculated Osmolality Calcium Corrected Calcium Phosphorus Magnesium Total Bilirubin AST ALT Alkaline Phosphatase Total Protein Albumin Globulin Albumin/Globulin Ratio 03/19/24 03/19/24 05:03 08:14 WBC 10.4 RBC 3.23 L Hgb 10.6 L Hct 31.4 L MCV 97 MCH 32.8 MCHC 33.8 RDW Std Deviation 43.0 Plt Count 131 L Neut % (Auto) 71 Lymph % (Auto) 18 [place] % (Auto) 9 Eos % (Auto) 2 Baso % (Auto) 1 Neut # (Auto) 7.3 Lymph # (Auto) 1.9 [place] # (Auto) 0.9 H Eos # (Auto) 0.2 Baso # (Auto) 0.1 Immature Gran # (Auto) 0.05 H Absolute Nucleated RBC 0.00 Immature Gran % 1 H Nucleated RBC % 0 PT 12.8 H INR 1.2 APTT 81.4 H > 139.0 H* D Sodium 135 L Potassium 4.4 Chloride 95 L Carbon Dioxide 29.8 Anion Gap 10 BUN 40 H Creatinine 4.5 H* D Estim Creat Clear Calc Not Performed. eGFR 12 L* BUN/Creatinine Ratio 9 L Glucose 150 H Calculated Osmolality 282 Calcium 9.0 Corrected Calcium 9.1 Phosphorus 3.5 Magnesium 1.9 Total Bilirubin 0.9 AST 40 H ALT 13 Alkaline Phosphatase 122 H Total Protein 7.5 Albumin 3.9 Globulin 3.6 H Albumin/Globulin Ratio 1.1 L Quality Measures Quality Measures none Advance care planning discussed with:: patient Assessment & Plan Assessment Current Active Medications: Generic Name Dose Route Start Last Admin Trade Name Freq PRN Reason Stop Dose Admin Acetaminophen 650 mg 03/17/24 17:10 Acetaminophen 325 Mg Tablet PO 04/16/24 17:09 Q6H PRN pain 1-3 and Fever >100.4 Hydrocodone Bitart/Acetaminophen 1 tab 03/17/24 17:10 03/18/24 18:29 Hydrocodone/Apap 5/325 Tablet PO 03/22/24 17:09 1 tab Q4HR PRN Administration PAIN SCALE 4-6 (Moderate Amiodarone HCl 200 mg 03/19/24 09:00 03/19/24 08:05 Amiodarone Hcl 200 Mg Tablet PO 04/18/24 08:59 200 mg QDAY ADOLFO Administration Aspirin 81 mg 03/18/24 09:00 03/19/24 08:05 Aspirin Ec 81 Mg Tabec PO 04/17/24 08:59 81 mg QDAY ADOLFO Administration Atorvastatin Calcium 40 mg 03/17/24 21:00 03/18/24 20:26 Atorvastatin Calcium 20 Mg Tablet PO 04/16/24 20:59 40 mg HS ADOLFO Administration Clopidogrel Bisulfate 75 mg 03/19/24 09:00 03/19/24 08:05 Clopidogrel Bisulfate 75 Mg Tablet PO 04/18/24 08:59 75 mg QDAY ADOLFO Administration Dextrose 25 ml 03/17/24 17:10 Dextrose 50%-Water Inj 50 Ml Syringe IV 04/16/24 17:09 Q15MIN PRN BG 50-70 responsive npo pt Dextrose 50 ml 03/17/24 17:10 Dextrose 50%-Water Inj 50 Ml Syringe IV 04/16/24 17:09 Q15MIN PRN BG <50 OR BG <70 & pt unresponsive Glucagon 1 mg 03/17/24 17:10 Glucagon Inj 1 Mg Vial IM Q15MIN PRN BG <70, and no IV access Heparin Sodium/Dextrose 25,000 unit in 250 mls @ 7.62 mls/hr 03/17/24 16:45 03/19/24 11:25 Heparin In D5w Ivpb IV 03/31/24 16:44 15 units/kg/hr .Q24H ADOLFO 9.525 mls/hr Titration Protocol 12 UNITS/KG/HR Insulin Human Lispro 0 unit 03/18/24 07:30 03/19/24 07:54 Insulin Lispro (Admelog) 1 Unit/0.01 Ml Unit SC 04/17/24 07:29 1 unit AC ADOLFO Administration Protocol Levothyroxine Sodium 25 mcg/ 150 mcg 03/18/24 06:00 03/19/24 05:11 Levothyroxine Sodium 125 mcg PO 04/17/24 05:59 150 mcg ACBR ADOLFO Administration Metoprolol Succinate 25 mg 03/19/24 09:00 03/19/24 08:21 Metoprolol Succinate Xl 25 Mg Tabcr PO 04/18/24 08:59 Not Given QDAY ADOLFO Morphine Sulfate 1 mg 03/17/24 17:10 Morphine Sulf Inj 10 Mg/Ml Vial IVP 03/22/24 17:09 Q4H PRN PAIN SCALE 7-10 (Severe Ondansetron HCl 4 mg 03/17/24 17:10 Ondansetron Inj 2 Mg/Ml Inj 2 Ml IV 04/16/24 17:09 Q6H PRN NAUSEA OR VOMITING Protocol Pharmacy Consult 1 each 03/17/24 17:23 Pharmacy Renal Dose Adjustment 1 Ea XX 04/16/24 17:22 PRN PRN CONSULT Sacubitril/Valsartan 1 tab 03/18/24 10:15 03/19/24 08:05 Sacubitril 24 Mg/Valsartan 26 Mg Tablet PO 04/17/24 10:14 1 tab BID ADOLFO Administration Plan 79-year-old male with past medical history of CAD s/p CABG, HFrEF (EF 30 to 35% 2022), A-fib s/p pacemaker, ESRD (HD on MWF), DM 2, hypothyroidism, hyperlipidemia, and hypertension was admitted to hospital on 03/17/2024 for elevated troponins and chest pain. #Acute coronary syndrome most likely NSTEMI type I # History of CAD with CABG #Typical chest pain #Elevated Troponin -Presented with chest pain -Given typical features and CAD history this is concerning for ACS or plaque rupture -BAO score: 5 points indicating 26% risk of all cause mortality, new or recurrent NH, severe recurrent ischemia requiring urgent revascularization -Pat score: 159 points indicating 26% probability of from admission to 6 months -Troponin elevated to 5.526 (of note troponin chronically elevated likely secondary to ESRD) -EKG demonstrated paced rhythm, rate 70, ST changes in aVF and V3-V6 -Treatment: Titrate O2 as needed for symptoms -Antiplatelet: S/p ASA 325 mg, Continue ASA 81mg PO QD, Continue Plavix -Anticoagulation: Continue heparin gtt. -Plaque stabilization: Atorvastatin 40 mg p.o. at bedtime -Cardiac remodeling: Continue metoprolol and Entresto -We will consider adding IV morphine as needed or nitroglycerin as needed if chest pain develops again -Patient refused PCI will continue current medical management , pending Dr Oliveira's reccs #ESRD (HD on MWF) ? Patient was supposed to get hemodialysis today, but skipped hemodialysis to go to his [employer]. ? Patient is BUN was 47 and creatinine 4.6 on admission ? Patient follows up with [employer] outpatient ? Avoid nephrotoxic agents ? Renally dose medications ? Nephrology consulted, appreciate recommendations, will continue his hemodylasis inpatient ? Will continue monitor #Normocytic normochromic anemia ?Patient's hemoglobin was 12.4 on admission ? Patient has a history of chronic anemia with base hemoglobin at 13.2 ?No active signs of bleeding Plan: ?Will transfuse hemoglobin less than 7 ? Will continue to monitor #Mild leukocytosis, resolved ?WBC 11 on admission ? Most likely reactive #Hx of HFrEF (EF 30 to 35% in 2022) ? Patient is not on acute decompensated heart failure exacerbation at this time - Entresto twice daily and metoprolol ? Echo ordered ?Cardiology consulted, appreciate recommendations ? Will continue to monitor #Hx of A-fib s/p pacemaker ? EKG showed paced rhythm with some ST elevations in lead III, aVF, V3, V4, and V5 ? Patient rate controlled at this time -Started patient on Amioadarone #Hx of DM2 ? Glucose 186 on admission ?A1c 6.4 ? ISS ? Accu-Cheks and hypoglycemia protocol ordered ? Will continue to monitor #Hx of hyperlipidemia ? Atorvastatin 40 mg nightly started #Hx of hypothyroidism ?Continue patient's levothyroxine 150 mg # Anxiety -will continue home alparazam 0.5 mg prn if needed Disposition: Patient admitted to telemetry for elevated troponins and chest pain on heparin drip Diet: cardiac/carb cons GI prophylaxis: protonix DVT prophylaxis: Heparin drip Code:Full Discussed the patient with my attending Dr Vicky Yoo MD,PGY-3 Attending Provider Attestation/Addendum I have examined the patient, reviewed labs and imaging findings, discussed the case with the resident(s), and reviewed entered orders. I agree with the plan of care as outlined in this note, with these additional summaries/recommendations: Patient is a 79-year-old male with a medical history of CAD status post CABG, CHF, paroxysmal atrial fibrillation with slow ventricular response status post pacemaker, ESRD on hemodialysis MWF via right upper extremity AV fistula, anxiety, hypothyroidism, hyperlipidemia, and primary hypertension who presents to [facility] emergency department on 03/17/2024 with chief complaint of substernal chest pain with elevated troponins and EKG changes and thus hospitalist team consulted for continuation of care. #NSTEMI Type I # History of CAD with CABG Presented with chest pain Given typical features and CAD history this is concerning for ACS or plaque rupture BAO score: 5 points indicating 26% risk of all cause mortality, new or recurrent NH, severe recurrent ischemia requiring urgent revascularization Pat score: 159 points indicating 26% probability of from admission to 6 months Troponin elevated to 5.526 (of note troponin chronically elevated likely secondary to ESRD) Treatment: Titrate O2 as needed for symptoms Antiplatelet: S/p ASA 325 mg, Continue ASA 81mg PO QD, & Plavix 75mg PO QD Anticoagulation: Continue heparin gtt. Plaque stabilization: Atorvastatin 40 mg p.o. at bedtime Cardiac remodeling: Continue Coreg 6.25 mg p.o. twice daily and Entresto May give IV morphine as needed or nitroglycerin as needed if chest pain develops again Plan: Patient denies any chest pain at this time. Patient again declined cardiac catheterization. We will continue conservative management and await recommendations from patients long time [employer] Dr. Ga. In-house cardiology also following closely. # History of CHF #Hx of A-fib Echocardiogram from 12/15/2022 showed severe systolic dysfunction with estimated EF of 30 to 35%. Patient does not appear to be in acute exacerbation at this time. Plan: Continue Coreg & Entresto in AM and no need for diuresis as patient is dialysis dependent. Echocardiogram ordered and cardiology following. Strict I's and O's. # End-stage renal disease History of ESRD on HD Wednesday via right upper extremity AV fistula Plan: Nephrology following with plans to resume hemodialysis inpatient # Hypothyroidism Plan: Continue levothyroxine 150mcg # Hyperlipidemia Plan: Continue atorvastatin # Anxiety Plan: continue home anxiolytics Dr. Perry
--- NOTE | 2024-03-19 12:37 | ESPR_ITS ---
<Statement entered by Britton Bolaños MD - 03/19/24 18:31> Covering for Dr. Cristopher Ga for this weekend and he will continue to follow the patient from tomorrow 03/20/2024. I reviewed the resident Dr. Dowell consultation progress note and agree with the resident findings and plan in the note above and have also edited the documentation to reflect my findings and plan. 79-year-old male with a past medical history of severe CAD status post to CABG [1998 with 4 grafts in 2008 with 3 grafts as per patient], PCI to mid to distal LCx in 2017, recent PCI with 3 stents to the SVG to OM1 graft in December 2022 still with residual disease, residual severe 80% stenosis of the STAPLES to LAD anastomosis, [place] arteries showed 100% occluded RCA and mild disease of the LCx with patent stent, severe 90% stenosis of the proximal LAD as well as the proximal diagonal with faint collaterals to right, paroxysmal atrial fibrillation, sick sinus syndrome, Medtronic dual-chamber permanent pacemaker in 2020, severe systolic CHF with an EF of 30 to 35% in December 2022, moderate to severe RV dysfunction along with diastolic dysfunction, essential hypertension, diabetes mellitus, hyperlipidemia, end-stage renal disease on hemodialysis,, chronic anemia mostly from ESRD, hypothyroidism presented to the hospital for further evaluation of chest pain. Patient apparently was seen in his primary cardiovascular or nurse office Dr. Ga this morning as he had started to have severe chest pain around 6 PM yesterday and continued to have more chest pain in spite of the nitroglycerin. Patient still have the chest pain's office and a troponin was sent from his office and patient was sent to the emergency department for further evaluation. Patient denies any kind of shortness of breath or new leg swelling or orthopnea or PND denied any Fever or chills or cough or sputum production. Cardiology was called consulted as his troponins were elevated at 5.5. Patient is now chest pain-free during my examination. In the emergency department initial vitals showed blood pressure of 150/73 mmHg heart rate of 79/min, afebrile and saturations normal on room air speaking in full sentences, and hemoglobin 12.4 WBC 11 platelets 160 BUN 46 creatinine of 4.6 on dialysis, sodium 134, troponin 5.5 but the office troponin was 2.5 LFTs showed mild AST elevation at 50 and alk phos of 149. UA was negative. EKG performed in the emergency department showed paced rhythm, chest x-ray showed mild vascular congestion. Assessment and plan: 1. Acute coronary syndrome-NSTEMI type I with troponins of 5.5 on admission. Patient with severe CAD status post to CABG [1998 with 4 grafts in 2008 with 3 grafts as per patient], PCI to mid to distal LCx in 2017, recent PCI with 3 stents to the SVG to OM1 graft in December 2022 still with residual disease, residual severe 80% stenosis of the STAPLES to LAD anastomosis, [place] arteries showed 100% occluded RCA and mild disease of the LCx with patent stent, severe 90% stenosis of the proximal LAD as well as the proximal diagonal with faint collaterals to right. EKG with paced rhythm and the patient is chest pain-free at the present point of time but had severe chest pain yesterday evening until this morning. Patient is hemodynamically stable. Reviewed the catheterization images from 2017 as well as 2022. Patient does have residual disease as noted above with severe 80 to 90% stenosis of the STAPLES to LAD as well as severe white [place] LAD, diagonal as well as RCA 100% occluded. The LCx is patent with mild disease. The SVG to OM1 graft result was suboptimal in 2022 and probably is occluded at the present point of time which is probably the reason for the NSTEMI along with other severe disease. Patient will need left heart cardiac catheterization with possible PCI but patient does not want to have any cardiac catheterization after his last PCI done in 2022 because of significant pain and blood leak from his prior right femoral cardiac catheterizations. He wants to be treated only medically at the present point of time. Patient is chest pain-free and will continue with heparin drip aspirin, Plavix, high intensity statin and beta-korey if BP permissible. If the patient needs PCI patient will need a high risk PCI with intervention to the STAPLES to LAD as it would be the graft to salvage but would need to be done at [facility] or a tertiary center given his severe biventricular failure. If the SVG to OM1 is occluded which should be only medical treatment along with the rest of the disease. Patient to be managed medically until his primary cardiovascular or nurse returns from vacation who knows him well for more than 25 years and can have further rate recommendations or discussions regarding the complex PCI that he needs. 03/18/2024-patient complained of some chest pressure at rest during dialysis which improved with the pain medication. Again we had a detailed discussion today with the patient regarding the need for possible high risk PCI which will be done at tertiary care center but patient completely refused the procedure and does not want to do and only wants to continue medical management. Continue heparin drip for 48 hours along with aspirin, Plavix, high intensity statin and metoprolol XL if BP is permissible. Patient informed us that he did discuss with his primary cardiovascular or nurse that he would not want any further procedures and recommended to discuss with them again. I did discuss with his primary cardiovascular or nurse Dr. Cristopher Ga.. Patient will need to be on at least 2 antianginals if blood pressure permits including Toprol-XL 25 mg once daily and eventually calcium channel korey. Ranexa does not appear to be an option because of the end-stage renal disease on hemodialysis and if he continues to have pain can use it sparsely at 500 mg once daily if still in pain in spite of 2 antianginals. 2. History of paroxysmal atrial fibrillation, sick sinus syndrome, Medtronic dual-chamber permanent pacemaker in 2020-patient continues to be in paced rhythm at the present point of time. Rate is well-controlled. Patient is on amiodarone 200 mg daily which should be continued and patient should be on beta- korey increase metoprolol to 25 mg once daily. Unclear why patient is not on anticoagulation given his history of paroxysmal atrial fibrillation and he has elevated chads Vascor. Continue heparin drip for now. Patient needs to be on Eliquis 2.5 mg twice daily along with Plavix and aspirin can be discontinued if oral anticoagulation is pursued as outpatient. 3. Severe systolic CHF with an EF of 30 to 35% in December 2022, moderate to severe RV dysfunction, mild valvular abnormalities with mild to moderate PAH. Patient needs to be on goal-directed medical therapy and should be on metoprolol XL Entresto and spironolactone. Patient is end-stage renal disease on hemodialysis and continue fluid management with dialysis. Does not appear to be severely volume overloaded at the present point of time strict input output Daily 20 g odium diet. 4. End-stage renal disease on hemodialysis 5. Hypertension 6. Hyperlipidemia 7. Hypothyroidism 8. Diabetes mellitus type 2, 9. Chronic anemia 10. BPH 11. Possible gout Management of rest of the medical conditions as per primary team and other consultants. Thank you for the consult and allowing me to participate in the care of the patient. Cardiology will continue to follow. Britton Bolaños M.D. Interventional Cardiology Documentation for date of: 03/19/24 Subjective Subjective Interval history: 03/19/2024: Patient examined at bedside today. Overnight on telemetry patient was in the 60s as he has a pacemaker. Patient examined and had said that he is not experiencing any chest pain. He does agree that he does not want to have any procedures done on him and wants to be medically managed. He is looking forward to seeing Dr. Ga cardiovascular or nurse tomorrow. Patient's blood pressure was in the 90s systolic, but was not experiencing any symptoms of shortness of breath headache, chest pain weakness or fatigue. He was given Entresto earlier in the morning but metoprolol was held. Will put holding parameters for patient for into management. Will continue with heparin drip and have personal his cardiovascular or nurse see him tomorrow. Patient tolerated dialysis well yesterday, BUN/creatinine of 40 and 4.5 respectively, had 1L removed yesterday. Exam Vital Signs Temp Pulse Resp BP Pulse Ox O2 Del Method 97.1 F 60 24 H 104/56 L 96 Room Air 03/19/24 08:00 03/19/24 08:21 03/19/24 08:00 03/19/24 08:21 03/19/24 08:00 03/19/24 08:00 Narrative Exam General: AAOx3, NAD, pleasant korean speaking male HEENT: Moist mucous membranes, conjunctiva clear, EOMI, PERRLA, Cardiovascular: S1, S2, radial pulses +2 bilat, RRR, no JVD present Pulmonary: CTAB bilat no cough, no wheezing GI: No tenderness to light or deep palpitation, no guarding, rigidity, rebound tenderness or distension Extremities: No presence of trace or pitting edema in lower extremities bilaterally, dorsalis pedis pulses +2 bilaterally, Fistula in RUE Neuro: AAOx3, no focal motor or sensory deficits in the UE or LE bilat Psych: Good judgement, thought and behavior. Cooperative Objective Labs 03/19/24 05:03 03/19/24 05:03 Labs: Laboratory Results - last 24 hr 03/18/24 03/18/24 03/19/24 12:04 18:53 01:47 WBC RBC Hgb Hct MCV MCH MCHC RDW Std Deviation Plt Count Neut % (Auto) Lymph % (Auto) [place] % (Auto) Eos % (Auto) Baso % (Auto) Neut # (Auto) Lymph # (Auto) [place] # (Auto) Eos # (Auto) Baso # (Auto) Immature Gran # (Auto) Absolute Nucleated RBC Immature Gran % Nucleated RBC % PT INR APTT 39.1 H 42.4 H 74.3 H D Sodium Potassium Chloride Carbon Dioxide Anion Gap BUN Creatinine Estim Creat Clear Calc eGFR BUN/Creatinine Ratio Glucose Calculated Osmolality Calcium Corrected Calcium Phosphorus Magnesium Total Bilirubin AST ALT Alkaline Phosphatase Total Protein Albumin Globulin Albumin/Globulin Ratio 03/19/24 03/19/24 05:03 08:14 WBC 10.4 RBC 3.23 L Hgb 10.6 L Hct 31.4 L MCV 97 MCH 32.8 MCHC 33.8 RDW Std Deviation 43.0 Plt Count 131 L Neut % (Auto) 71 Lymph % (Auto) 18 [place] % (Auto) 9 Eos % (Auto) 2 Baso % (Auto) 1 Neut # (Auto) 7.3 Lymph # (Auto) 1.9 [place] # (Auto) 0.9 H Eos # (Auto) 0.2 Baso # (Auto) 0.1 Immature Gran # (Auto) 0.05 H Absolute Nucleated RBC 0.00 Immature Gran % 1 H Nucleated RBC % 0 PT 12.8 H INR 1.2 APTT 81.4 H > 139.0 H* D Sodium 135 L Potassium 4.4 Chloride 95 L Carbon Dioxide 29.8 Anion Gap 10 BUN 40 H Creatinine 4.5 H* D Estim Creat Clear Calc Not Performed. eGFR 12 L* BUN/Creatinine Ratio 9 L Glucose 150 H Calculated Osmolality 282 Calcium 9.0 Corrected Calcium 9.1 Phosphorus 3.5 Magnesium 1.9 Total Bilirubin 0.9 AST 40 H ALT 13 Alkaline Phosphatase 122 H Total Protein 7.5 Albumin 3.9 Globulin 3.6 H Albumin/Globulin Ratio 1.1 L Quality Measures Quality Measures none Advance care planning discussed with:: patient Assessment & Plan Assessment Current Active Medications: Generic Name Dose Route Start Last Admin Trade Name Freq PRN Reason Stop Dose Admin Acetaminophen 650 mg 03/17/24 17:10 Acetaminophen 325 Mg Tablet PO 04/16/24 17:09 Q6H PRN pain 1-3 and Fever >100.4 Hydrocodone Bitart/Acetaminophen 1 tab 03/17/24 17:10 03/18/24 18:29 Hydrocodone/Apap 5/325 Tablet PO 03/22/24 17:09 1 tab Q4HR PRN Administration PAIN SCALE 4-6 (Moderate Amiodarone HCl 200 mg 03/19/24 09:00 03/19/24 08:05 Amiodarone Hcl 200 Mg Tablet PO 04/18/24 08:59 200 mg QDAY ADOLFO Administration Aspirin 81 mg 03/18/24 09:00 03/19/24 08:05 Aspirin Ec 81 Mg Tabec PO 04/17/24 08:59 81 mg QDAY ADOLFO Administration Atorvastatin Calcium 40 mg 03/17/24 21:00 03/18/24 20:26 Atorvastatin Calcium 20 Mg Tablet PO 04/16/24 20:59 40 mg HS ADOLFO Administration Clopidogrel Bisulfate 75 mg 03/19/24 09:00 03/19/24 08:05 Clopidogrel Bisulfate 75 Mg Tablet PO 04/18/24 08:59 75 mg QDAY ADOLFO Administration Dextrose 25 ml 03/17/24 17:10 Dextrose 50%-Water Inj 50 Ml Syringe IV 04/16/24 17:09 Q15MIN PRN BG 50-70 responsive npo pt Dextrose 50 ml 03/17/24 17:10 Dextrose 50%-Water Inj 50 Ml Syringe IV 04/16/24 17:09 Q15MIN PRN BG <50 OR BG <70 & pt unresponsive Glucagon 1 mg 03/17/24 17:10 Glucagon Inj 1 Mg Vial IM Q15MIN PRN BG <70, and no IV access Heparin Sodium/Dextrose 25,000 unit in 250 mls @ 7.62 mls/hr 03/17/24 16:45 03/19/24 11:25 Heparin In D5w Ivpb IV 03/31/24 16:44 15 units/kg/hr .Q24H ADOLFO 9.525 mls/hr Titration Protocol 12 UNITS/KG/HR Insulin Human Lispro 0 unit 03/18/24 07:30 03/19/24 12:26 Insulin Lispro (Admelog) 1 Unit/0.01 Ml Unit SC 04/17/24 07:29 1 unit AC ADOLFO Administration Protocol Levothyroxine Sodium 25 mcg/ 150 mcg 03/18/24 06:00 03/19/24 05:11 Levothyroxine Sodium 125 mcg PO 04/17/24 05:59 150 mcg ACBR ADOLFO Administration Metoprolol Succinate 25 mg 03/19/24 12:08 Metoprolol Succinate Xl 25 Mg Tabcr PO 04/18/24 08:59 QDAY ADOLFO Morphine Sulfate 1 mg 03/17/24 17:10 Morphine Sulf Inj 10 Mg/Ml Vial IVP 03/22/24 17:09 Q4H PRN PAIN SCALE 7-10 (Severe Ondansetron HCl 4 mg 03/17/24 17:10 Ondansetron Inj 2 Mg/Ml Inj 2 Ml IV 04/16/24 17:09 Q6H PRN NAUSEA OR VOMITING Protocol Pharmacy Consult 1 each 03/17/24 17:23 Pharmacy Renal Dose Adjustment 1 Ea XX 04/16/24 17:22 PRN PRN CONSULT Sacubitril/Valsartan 1 tab 03/18/24 10:15 03/19/24 08:05 Sacubitril 24 Mg/Valsartan 26 Mg Tablet PO 04/17/24 10:14 1 tab BID ADOLFO Administration Plan Assessment 79-year-old male with past medical history of CAD s/p CABG, HFrEF (EF 30 to 35% 2022), A-fib s/p pacemaker, ESRD (HD on MWF), DM 2, hypothyroidism, hyperlipidemia, and hypertension was admitted to hospital on 03/17/2024 for elevated troponins and chest pain. #NSTEMI #Elevated Troponin, improving #Hx of CAD s/p quadruple and triple bypass #History of stents #Hx of HFrEF (EF 30 to 35% in 2022) Patient complaining of typical chest pain that was relieved with nitroglycerin Dr Ga symptom after his troponins done in office were elevated and complaining of chest pain Patient had PCI done in 01/2023 which patient had 3 drug-eluting stents. He had 80% distal anastomotic site stenosis of STAPLES to the LAD, totally occluded vein bypass graft to the diagonal branch as well as the RCA, 10 percent occlusion of the proximal RCA, 90% stenosis in the mid portion of the LAD, 99% stenosis of the first diagonal branch of the LAD, 100% occlusion of the mid LAD white mountain vessels, and 100% occlusion of the ostium of the second obtuse marginal branch of the circumflex coronary artery with patent previously stented midportion about left circumflex coronary artery after the origin of the second obtuse marginal branch If patient needs PCI he will need a high risk PCI with intervention to the STAPLES to the LAD as it would be a graft to salvage but would need to be done at a tertiary center [facility] considering his biventricular failure. If the SVG to OM1 is occluded which should only be the medical treatment along with the rest of the disease. We will continue medical management until his cardiovascular or nurse, Dr. Ga, returns from vacation and he can further discuss options with him. Today also reiterated that he does not want any catheterization and he wants just medical management at this point Troponins were 3.906 and up trended to 5.526 and peaked at 7.4, will not check any more Continuing medical management, his cardiovascular or nurse will see him tomorrow hopefully and patient does not want any other mention as well. Plan: ? Continue heparin drip ? Continue Lipitor 40 ? Continue with aspirin #Hx of HFrEF (EF 30 to 35% in 2022) #Hx of A-fib s/p pacemaker Patient is rate controlled at this time Echo in December 2022 showed normal LV side, severe systolic dysfunction estimated ejection fraction of 30 to 35% CHADVASC: 6 points HAS-BLED: 2 points Concern for lower blood pressure this morning, holding parameters added Plan: ?Continue metoprolol 25 XL holding parameters of SBP below 90 ?Continue with Entresto with holding parameters of SBP below 120 ?Follow-up echo ?Keep magnesium and potassium above 2 and 4 respectively #Hx of hyperlipidemia Total 142, LDL ~40 Plan: ?Continue Lipitor 40 milligrams at bedtime #Hx of DM2 #ESRD (HD on MWF) #Normocytic normochromic anemia #Mild leukocytosis #Hx of hypothyroidism Above management by primary hospitalist team Patient seen and care discussed with my attending physician, Dr. Mami Emerson, PGY-1
--- NOTE | 2024-03-19 12:48 | PD.NEPHPROG ---
Documentation for date of: 03/19/24 Subjective Subjective Interval history: Mr. Casillas is a 79-year-old gentleman with past medical history of CAD s/p CABG, HFrEF (EF 30 to 35% 2022), A-fib s/p pacemaker, ESRD (HD on MWF), DM 2, hyperlipidemia, hypothyroidism and hypertension presented to the emergency department sent by Dr. Ga for chest pain and elevated troponin. Patient started having chest pain the night before and went to Dr. Cartagena office without going to dialysis. He took [address] Cartagena sent him for troponin check and then it came back slightly elevated he was told to go to the emergency department. His daughter Kesha is at the bedside and is the informant. Patient missed dialysis yesterday. Renal consultation requested for need for dialysis. In the emergency department BUN 47, creatinine 4.6, troponin elevated to 5.5. Urinalysis shows mild UTI. Chest x-ray showed minimal fluid overload, EKG showed some ST changes. Dr. Ga was called by ER provider and he recommended heparin drip and to consult canceling and cutting control clerk. 03/18/2024 Patient currently seen in telemetry. Daughter at bedside.WBC 9.9, hemoglobin 10.7, platelets 131. Sodium 136, potassium 4.6, BUN 60, creatinine 5.1, GFR 11, A1c 6.4, AST 51, ALT less than 7, alk phos 125, troponin this morning 7.1, albumin 3.9. Lipids normal. Urinalysis shows 2+ protein, no bacteria. Chest x-ray showed mild fluid overload. 03/19/2024 patient currently seen in telemetry. Son at bedside. Had several questions. Patient admitted for chest pain-ruled in for AR. On heparin drip. Dr. Ga will come back in AM. Possibly needing angiogram. Next dialysis scheduled for tomorrow. Review of Systems Review of Systems Narrative Review of Systems: CONSTITUTIONAL: Patient denies any fever, chills. HEENT: Denies any visual disturbances or hearing problems. CARDIOVASCULAR: Patient denies any chest pain, shortness of breath, swelling in the lower extremities. Chest pain resolved PULMONARY: Patient denies any shortness of breath, cough. GASTROINTESTINAL: Patient denies any abdominal pain, constipation, nausea, vomiting, diarrhea. GENITOURINARY: Patient denies any urinary symptoms of burning or frequency or hematuria, denies any form in the urine. SKIN: Denies any rash. MUSCULOSKELETAL: Denies any muscular skeletal problems of joint pains. NEUROLOGICAL: Denies any neurological problems of strokes, seizures or confusion. Denies any memory problems. PSYCHIATRIC: Denies any depression or anxiety. LYMPHATICS : No lymphadenopathy Exam Vital Signs Temp Pulse Resp BP Pulse Ox O2 Del Method 36.1 C 60 14 102/62 96 Room Air 03/19/24 16:00 03/19/24 16:00 03/19/24 16:00 03/19/24 16:00 03/19/24 16:00 03/19/24 16:00 Narrative Exam GENERAL APPEARANCE: Patient seems to be comfortable, adequately hydrated and nourished. Currently seen in telemetry HEENT: EOMI, JAYLON NECK: Neck supple, no JVD or bruit CARDIOVASCULAR: Heart regular, no murmurs LUNGS/CHEST: Chest clear to auscultation. No rales, rhonchi, wheezing ABDOMEN: Soft, nontender, nondistended. No masses. Normal bowel sounds. EXTREMITIES: No edema, clubbing or cyanosis. + avf SKIN: Skin exam normal without any rashes MUSCULOSKELETAL: Musculoskeletal exam normal PSYCHIATRIC: Normal mood, affect LYMPHATICS: No lymphadenopathy noted NEUROLOGICAL : No neurological deficits Objective Labs 03/19/24 05:03 03/19/24 05:03 Labs: Laboratory Results - last 24 hr 03/18/24 03/19/24 03/19/24 18:53 01:47 05:03 WBC 10.4 RBC 3.23 L Hgb 10.6 L Hct 31.4 L MCV 97 MCH 32.8 MCHC 33.8 RDW Std Deviation 43.0 Plt Count 131 L Neut % (Auto) 71 Lymph % (Auto) 18 [place] % (Auto) 9 Eos % (Auto) 2 Baso % (Auto) 1 Neut # (Auto) 7.3 Lymph # (Auto) 1.9 [place] # (Auto) 0.9 H Eos # (Auto) 0.2 Baso # (Auto) 0.1 Immature Gran # (Auto) 0.05 H Absolute Nucleated RBC 0.00 Immature Gran % 1 H Nucleated RBC % 0 PT 12.8 H INR 1.2 APTT 42.4 H 74.3 H D 81.4 H Sodium 135 L Potassium 4.4 Chloride 95 L Carbon Dioxide 29.8 Anion Gap 10 BUN 40 H Creatinine 4.5 H* D Estim Creat Clear Calc Not Performed. eGFR 12 L* BUN/Creatinine Ratio 9 L Glucose 150 H Calculated Osmolality 282 Calcium 9.0 Corrected Calcium 9.1 Phosphorus 3.5 Magnesium 1.9 Total Bilirubin 0.9 AST 40 H ALT 13 Alkaline Phosphatase 122 H Total Protein 7.5 Albumin 3.9 Globulin 3.6 H Albumin/Globulin Ratio 1.1 L 03/19/24 08:14 WBC RBC Hgb Hct MCV MCH MCHC RDW Std Deviation Plt Count Neut % (Auto) Lymph % (Auto) [place] % (Auto) Eos % (Auto) Baso % (Auto) Neut # (Auto) Lymph # (Auto) [place] # (Auto) Eos # (Auto) Baso # (Auto) Immature Gran # (Auto) Absolute Nucleated RBC Immature Gran % Nucleated RBC % PT INR APTT > 139.0 H* D Sodium Potassium Chloride Carbon Dioxide Anion Gap BUN Creatinine Estim Creat Clear Calc eGFR BUN/Creatinine Ratio Glucose Calculated Osmolality Calcium Corrected Calcium Phosphorus Magnesium Total Bilirubin AST ALT Alkaline Phosphatase Total Protein Albumin Globulin Albumin/Globulin Ratio Assessment & Plan Assessment and plan (1) End stage chronic kidney disease: Status: Acute (2) Non-STEMI (non-ST elevated myocardial infarction): Status: Acute (3) Hypertension: Status: Acute (4) Anemia: Status: Acute (5) Diabetes: Status: Acute (6) Hyperlipidemia: Status: Acute Additional Assessment & Plan Additional Plan: (1) AMI Dr. Gutiérrez was consulted. Patient currently on heparin drip. Might need angiogram. Dr. Ga to decide 2) Atrial fibrillation Status: Acute Assessment and plan: He has A-fib with rate controlled. Dr. Ga placed him on plavix- held Low platelets noted. Currently on aspirin, heparin drip (3) Hypertension: Status: Acute Assessment and plan: on beta-korey, Entresto (4) ESRD Status: Acute Assessment and plan: ESRD secondary to diabetic nephropathy. ++ Right arm AV fistula Next dialysis scheduled for tomorrow (5) hyperuricemia: On allopurinol (6) Anemia: Status: Acute Assessment and plan: Hemoglobin stable. Will monitor closely epo with dialysis (7) Diabetes: Status: Acute Assessment and plan: Accu-Cheks, sliding scale. Consistent carb low (8) Hyperlipidemia: Status: Acute Assessment and plan: On statin Thank you Isai for allowing me to participate in the care of Mr. Casillas
[2024-03-19] MEDS: Heparin/D5w 25K 250 ML Ivpb 25,000 UNIT/250 ML BAG 9.525 UNIT IV (16:56)
[2024-03-19 18:26] LABS: Partial Thromboplastin Time 47.7 Seconds (22.0-36.0)
[2024-03-19] MEDS: HEPARIN SOD INJ 5000 UNIT/ML VIAL 1900 UNIT IVP (18:41)
[2024-03-19] MEDS: ATORVASTATIN CALCIUM 20 MG TABLET 40 MG PO (20:05)
[2024-03-20] VITALS (22 sets, daily range): BP systolic 93–140; BP diastolic 52–67; PULSE 54–65; RESP 15–19; TEMP 35.8–36.3; O2SAT 94–97
[2024-03-20 01:57] LABS: Partial Thromboplastin Time 55.8 Seconds (22.0-36.0)
[2024-03-20] MEDS: LEVOTHYROXINE SODIUM 150 MCG PO (05:15)
[2024-03-20 06:21] LABS: Basophils # (Auto) 0.1 Thou/mm3 (0.0-0.2); Basophils % (Auto) 1 % (0-2.5); Eosinophils # (Auto) 0.4 Thou/mm3 (0.0-0.5); Eosinophils % (Auto) 4 % (0-10); Hematocrit 31.4 % (41.0-53.0); Hemoglobin 10.6 g/dL (13.5-16.0); Immature Granulocytes % (Auto) 0 % (0-0); Immature Granulocytes Auto 0.04 Thou/mm3 (0.00-0.00); Lymphocytes # (Auto) 1.6 Thou/mm3 (1.0-4.8); Lymphocytes % (Auto) 17 % (10-50); Mean Corpuscular HGB Conc 33.8 g/dl (31.0-37.0); Mean Corpuscular Hemoglobin 32.8 pg (25.0-35.0); Mean Corpuscular Volume 97 fL (80-100); Monocytes % (Auto) 10 % (0-12); Neutrophils # (Auto) 6.6 Thou/mm3 (1.8-7.7); Neutrophils % (Auto) 68 % (37-80); Nucleated Red Blood Cell % 0 /100 WBC (0); Platelet Count 146 Thou/mm3 (140-440); RDW Standard Deviation 42.6 fL (35.1-43.9); Red Blood Count 3.23 Miln/mm3 (4.50-5.90); White Blood Count 9.7 Thou/mm3 (3.8-10.6)
[2024-03-20 06:33] LABS: Alanine Aminotransferase 17 U/L (10-49); Albumin, Serum 3.7 gm/dL (3.4-4.8); Alkaline Phosphatase 123 U/L (46-116); Anion Gap 14 (7-16); Aspartate Amino Transferase 31 U/L (0-34); BUN/Creatinine Ratio 10 Ratio (12-20); Bilirubin,Total 0.6 mg/dL (0.3-1.2); Blood Urea Nitrogen 58 mg/dL (9-23); Calcium (Corrected) 9.2 mg/dL (8.5-10.1); Chloride 94 mMol/L (98-107); Creatinine (Component) 6.1 mg/dL (0.6-1.3); Globulin 3.8 gm/dL (2.3-3.5); Glucose 151 mg/dL (74-106); Magnesium 2.3 mg/dL (1.6-2.6); Osmolality,Calculated 287 (275-295); Phosphorous 4.2 mg/dL (2.4-5.1); Potassium 4.2 mMol/L (3.4-5.1); Sodium 134 mMol/L (136-145); Total Protein 7.5 gm/dL (5.7-8.2); eGFR 9 See Note
[2024-03-20] MEDS: ASPIRIN EC 81 MG TABEC PO (08:26)
[2024-03-20] MEDS: CLOPIDOGREL BISULFATE 75 MG TABLET PO (08:26)
[2024-03-20] MEDS: AMIODARONE HCL 200 MG TABLET PO (08:27)
--- NOTE | 2024-03-20 09:12 | ESPR_ITS ---
Documentation for date of: 03/20/24 Subjective Subjective Interval history: 03/19/2024: Patient examined at bedside today. Overnight on telemetry patient was in the 60s as he has a pacemaker. Patient examined and had said that he is not experiencing any chest pain. He does agree that he does not want to have any procedures done on him and wants to be medically managed. He is looking forward to seeing Dr. Ga environmental specialist tomorrow. Patient's blood pressure was in the 90s systolic, but was not experiencing any symptoms of shortness of breath headache, chest pain weakness or fatigue. He was given Entresto earlier in the morning but metoprolol was held. Will put holding parameters for patient for into management. Will continue with heparin drip and have personal his environmental specialist see him tomorrow. Patient tolerated dialysis well yesterday, BUN/creatinine of 40 and 4.5 respectively, had 1L removed yesterday. 03/20/2024: Patient examined at bedside today. Overnight on telemetry patient was in the 60s as he has a pacemaker. Patient examined and also stated today that he has no chest pain shortness of breath or headache. His blood pressure was a little low 93 systolic, MAP 66. Held Entresto, will hold metoprolol 25 XL because patient will be going to dialysis later today. Will consider metoprolol later if there is blood pressure room. Will see if Dr. Ga his environmental specialist will see him today. Continuing heparin drip, we will stop at some point. No other complaints at this time. BUN/creatinine of 58 and 6.1 respectively. Exam Vital Signs Temp Pulse Resp BP Pulse Ox O2 Del Method 97.1 F 54 L 15 93/53 L 97 Room Air 03/20/24 04:00 03/20/24 08:27 03/20/24 04:00 03/20/24 08:27 03/20/24 04:00 03/20/24 04:00 Narrative Exam General: AAOx3, NAD, pleasant bolivian speaking male HEENT: Moist mucous membranes, conjunctiva clear, EOMI, PERRLA, Cardiovascular: S1, S2, radial pulses +2 bilat, RRR, no JVD present Pulmonary: CTAB bilat no cough, no wheezing GI: No tenderness to light or deep palpitation, no guarding, rigidity, rebound tenderness or distension Extremities: No presence of trace or pitting edema in lower extremities bilaterally, dorsalis pedis pulses +2 bilaterally, Fistula in RUE Neuro: AAOx3, no focal motor or sensory deficits in the UE or LE bilat Psych: Good judgement, thought and behavior. Cooperative Objective Labs 03/20/24 05:25 03/20/24 05:25 Labs: Laboratory Results - last 24 hr 03/19/24 03/19/24 03/20/24 08:14 17:43 00:53 WBC RBC Hgb Hct MCV MCH MCHC RDW Std Deviation Plt Count Neut % (Auto) Lymph % (Auto) [place] % (Auto) Eos % (Auto) Baso % (Auto) Neut # (Auto) Lymph # (Auto) [place] # (Auto) Eos # (Auto) Baso # (Auto) Immature Gran # (Auto) Absolute Nucleated RBC Immature Gran % Nucleated RBC % APTT > 139.0 H* D 47.7 H D 55.8 H Sodium Potassium Chloride Carbon Dioxide Anion Gap BUN Creatinine Estim Creat Clear Calc eGFR BUN/Creatinine Ratio Glucose Calculated Osmolality Calcium Corrected Calcium Phosphorus Magnesium Total Bilirubin AST ALT Alkaline Phosphatase Total Protein Albumin Globulin Albumin/Globulin Ratio 03/20/24 05:25 WBC 9.7 RBC 3.23 L Hgb 10.6 L Hct 31.4 L MCV 97 MCH 32.8 MCHC 33.8 RDW Std Deviation 42.6 Plt Count 146 Neut % (Auto) 68 Lymph % (Auto) 17 [place] % (Auto) 10 Eos % (Auto) 4 Baso % (Auto) 1 Neut # (Auto) 6.6 Lymph # (Auto) 1.6 [place] # (Auto) 1.0 H Eos # (Auto) 0.4 Baso # (Auto) 0.1 Immature Gran # (Auto) 0.04 H Absolute Nucleated RBC 0.00 Immature Gran % 0 Nucleated RBC % 0 APTT Sodium 134 L Potassium 4.2 Chloride 94 L Carbon Dioxide 26.0 Anion Gap 14 BUN 58 H Creatinine 6.1 H* D Estim Creat Clear Calc Not Performed. eGFR 9 L* BUN/Creatinine Ratio 10 L Glucose 151 H Calculated Osmolality 287 Calcium 9.0 Corrected Calcium 9.2 Phosphorus 4.2 Magnesium 2.3 Total Bilirubin 0.6 AST 31 ALT 17 Alkaline Phosphatase 123 H Total Protein 7.5 Albumin 3.7 Globulin 3.8 H Albumin/Globulin Ratio 1.0 L Quality Measures Quality Measures none Advance care planning discussed with:: patient Assessment & Plan Assessment Current Active Medications: Generic Name Dose Route Start Last Admin Trade Name Freq PRN Reason Stop Dose Admin Acetaminophen 650 mg 03/17/24 17:10 Acetaminophen 325 Mg Tablet PO 04/16/24 17:09 Q6H PRN pain 1-3 and Fever >100.4 Hydrocodone Bitart/Acetaminophen 1 tab 03/17/24 17:10 03/18/24 18:29 Hydrocodone/Apap 5/325 Tablet PO 03/22/24 17:09 1 tab Q4HR PRN Administration PAIN SCALE 4-6 (Moderate Amiodarone HCl 200 mg 03/19/24 09:00 03/20/24 08:27 Amiodarone Hcl 200 Mg Tablet PO 04/18/24 08:59 200 mg QDAY ADOLFO Administration Aspirin 81 mg 03/18/24 09:00 03/20/24 08:26 Aspirin Ec 81 Mg Tabec PO 04/17/24 08:59 81 mg QDAY ADOLFO Administration Atorvastatin Calcium 40 mg 03/17/24 21:00 03/19/24 20:05 Atorvastatin Calcium 20 Mg Tablet PO 04/16/24 20:59 40 mg HS ADOLFO Administration Clopidogrel Bisulfate 75 mg 03/19/24 09:00 03/20/24 08:26 Clopidogrel Bisulfate 75 Mg Tablet PO 04/18/24 08:59 75 mg QDAY ADOLFO Administration Dextrose 25 ml 03/17/24 17:10 Dextrose 50%-Water Inj 50 Ml Syringe IV 04/16/24 17:09 Q15MIN PRN BG 50-70 responsive npo pt Dextrose 50 ml 03/17/24 17:10 Dextrose 50%-Water Inj 50 Ml Syringe IV 04/16/24 17:09 Q15MIN PRN BG <50 OR BG <70 & pt unresponsive Glucagon 1 mg 03/17/24 17:10 Glucagon Inj 1 Mg Vial IM Q15MIN PRN BG <70, and no IV access Heparin Sodium/Dextrose 25,000 unit in 250 mls @ 7.62 mls/hr 03/17/24 16:45 03/20/24 02:05 Heparin In D5w Ivpb IV 03/31/24 16:44 17 units/kg/hr .Q24H ADOLFO 10.796 mls/hr Titration Protocol 12 UNITS/KG/HR Insulin Human Lispro 0 unit 03/18/24 07:30 03/20/24 07:34 Insulin Lispro (Admelog) 1 Unit/0.01 Ml Unit SC 04/17/24 07:29 Not Given AC [facility] Protocol Levothyroxine Sodium 25 mcg/ 150 mcg 03/18/24 06:00 03/20/24 05:15 Levothyroxine Sodium 125 mcg PO 04/17/24 05:59 150 mcg ACBR ADOLFO Administration Metoprolol Succinate 25 mg 03/19/24 13:48 03/20/24 08:27 Metoprolol Succinate Xl 25 Mg Tabcr PO 04/18/24 08:59 Not Given QDAY ADOLFO Morphine Sulfate 1 mg 03/17/24 17:10 Morphine Sulf Inj 10 Mg/Ml Vial IVP 03/22/24 17:09 Q4H PRN PAIN SCALE 7-10 (Severe Ondansetron HCl 4 mg 03/17/24 17:10 Ondansetron Inj 2 Mg/Ml Inj 2 Ml IV 04/16/24 17:09 Q6H PRN NAUSEA OR VOMITING Protocol Pharmacy Consult 1 each 03/17/24 17:23 Pharmacy Renal Dose Adjustment 1 Ea XX 04/16/24 17:22 PRN PRN CONSULT Sacubitril/Valsartan 1 tab 03/19/24 21:00 03/20/24 08:28 Sacubitril 24 Mg/Valsartan 26 Mg Tablet PO 04/17/24 20:59 Not Given BID [facility] Plan Assessment 79-year-old male with past medical history of CAD s/p CABG, HFrEF (EF 30 to 35% 2022), A-fib s/p pacemaker, ESRD (HD on MWF), DM 2, hypothyroidism, hyperlipidemia, and hypertension was admitted to hospital on 03/17/2024 for elevated troponins and chest pain. #NSTEMI #Elevated Troponin, improving #Hx of CAD s/p quadruple and triple bypass #History of stents #Hx of HFrEF (EF 30 to 35% in 2022) Patient complaining of typical chest pain that was relieved with nitroglycerin Dr Ga symptom after his troponins done in office were elevated and complaining of chest pain Patient had PCI done in 01/2023 which patient had 3 drug-eluting stents. He had 80% distal anastomotic site stenosis of STAPLES to the LAD, totally occluded vein bypass graft to the diagonal branch as well as the RCA, 10 percent occlusion of the proximal RCA, 90% stenosis in the mid portion of the LAD, 99% stenosis of the first diagonal branch of the LAD, 100% occlusion of the mid LAD [place] vessels, and 100% occlusion of the ostium of the second obtuse marginal branch of the circumflex coronary artery with patent previously stented midportion about left circumflex coronary artery after the origin of the second obtuse marginal branch If patient needs PCI he will need a high risk PCI with intervention to the STAPLES to the LAD as it would be a graft to salvage but would need to be done at a tertiary center [facility] considering his biventricular failure. If the SVG to OM1 is occluded which should only be the medical treatment along with the rest of the disease. We will continue medical management until his environmental specialist, Dr. Ga, returns from vacation and he can further discuss options with him. Today also reiterated that he does not want any catheterization and he wants just medical management at this point Troponins were 3.906 and up trended to 5.526 and peaked at 7.4, will not check any more Continuing medical management, his environmental specialist will see him today hopefully and patient does not want any other mention as well. Plan: ? Continue heparin drip ? Continue Lipitor 40 ? Continue with aspirin #Hx of HFrEF (EF 30 to 35% in 2022) #Hx of A-fib s/p pacemaker Patient is rate controlled at this time Echo in December 2022 showed normal LV side, severe systolic dysfunction estimated ejection fraction of 30 to 35% CHADVASC: 6 points HAS-BLED: 2 points Concern for lower blood pressure this morning, holding parameters added Plan: ?Continue metoprolol 25 XL holding parameters of SBP below 90 ?Continue with Entresto with holding parameters of SBP below 120 ?Follow-up echo ?Keep magnesium and potassium above 2 and 4 respectively #Hx of hyperlipidemia Total 142, LDL ~40 Plan: ?Continue Lipitor 40 milligrams at bedtime #Hx of DM2 #ESRD (HD on MWF) #Normocytic normochromic anemia #Mild leukocytosis #Hx of hypothyroidism Above management by primary hospitalist team Patient seen and care discussed with my attending physician, Dr. Mami Emerson, PGY-1 Attending Provider Attestation/Addendum I reviewed the resident Dr. Dowell consultation progress note and agree with the resident findings and plan in the note above and have also edited the documentation to reflect my findings and plan. 79-year-old male with a past medical history of severe CAD status post to CABG [1998 with 4 grafts in 2008 with 3 grafts as per patient], PCI to mid to distal LCx in 2017, recent PCI with 3 stents to the SVG to OM1 graft in December 2022 still with residual disease, residual severe 80% stenosis of the STAPLES to LAD anastomosis, [place] arteries showed 100% occluded RCA and mild disease of the LCx with patent stent, severe 90% stenosis of the proximal LAD as well as the proximal diagonal with faint collaterals to right, paroxysmal atrial fibrillation, sick sinus syndrome, Medtronic dual-chamber permanent pacemaker in 2020, severe systolic CHF with an EF of 30 to 35% in December 2022, moderate to severe RV dysfunction along with diastolic dysfunction, essential hypertension, diabetes mellitus, hyperlipidemia, end-stage renal disease on hemodialysis,, chronic anemia mostly from ESRD, hypothyroidism presented to the hospital for further evaluation of chest pain. Patient apparently was seen in his primary environmental specialist office Dr. Ga this morning as he had started to have severe chest pain around 6 PM yesterday and continued to have more chest pain in spite of the nitroglycerin. Patient still have the chest pain's office and a troponin was sent from his office and patient was sent to the emergency department for further evaluation. Patient denies any kind of shortness of breath or new leg swelling or orthopnea or PND denied any Fever or chills or cough or sputum production. Cardiology was called consulted as his troponins were elevated at 5.5. Patient is now chest pain-free during my examination. In the emergency department initial vitals showed blood pressure of 150/73 mmHg heart rate of 79/min, afebrile and saturations normal on room air speaking in full sentences, and hemoglobin 12.4 WBC 11 platelets 160 BUN 46 creatinine of 4.6 on dialysis, sodium 134, troponin 5.5 but the office troponin was 2.5 LFTs showed mild AST elevation at 50 and alk phos of 149. UA was negative. EKG performed in the emergency department showed paced rhythm, chest x-ray showed mild vascular congestion. Assessment and plan: 1. Acute coronary syndrome-NSTEMI type I with troponins of 5.5 on admission. Patient with severe CAD status post to CABG [1998 with 4 grafts in 2008 with 3 grafts as per patient], PCI to mid to distal LCx in 2017, recent PCI with 3 stents to the SVG to OM1 graft in December 2022 still with residual disease, residual severe 80% stenosis of the STAPLES to LAD anastomosis, [place] arteries showed 100% occluded RCA and mild disease of the LCx with patent stent, severe 90% stenosis of the proximal LAD as well as the proximal diagonal with faint collaterals to right. EKG with paced rhythm and the patient is chest pain-free at the present point of time but had severe chest pain yesterday evening until this morning. Patient is hemodynamically stable. Reviewed the catheterization images from 2018 as well as 2022. Patient does have residual disease as noted above with severe 80 to 90% stenosis of the STAPLES to LAD as well as severe [place] LAD, diagonal as well as RCA 100% occluded. The LCx is patent with mild disease. The SVG to OM1 graft result was suboptimal in 2022 and probably is occluded at the present point of time which is probably the reason for the NSTEMI along with other severe disease. Patient will need left heart cardiac catheterization with possible PCI but patient does not want to have any cardiac catheterization after his last PCI done in 2022 because of significant pain and blood leak from his prior right femoral cardiac catheterizations. He wants to be treated only medically at the present point of time. Patient is chest pain-free and will continue with heparin drip aspirin, Plavix, high intensity statin and beta-korey if BP permissible. If the patient needs PCI patient will need a high risk PCI with intervention to the STAPLES to LAD as it would be the graft to salvage but would need to be done at [facility] or a tertiary center given his severe biventricular failure. If the SVG to OM1 is occluded which should be only medical treatment along with the rest of the disease. Patient to be managed medically until his primary environmental specialist returns from vacation who knows him well for more than 25 years and can have further rate recommendations or discussions regarding the complex PCI that he needs. 03/18/2024-patient complained of some chest pressure at rest during dialysis which improved with the pain medication. Again we had a detailed discussion today with the patient regarding the need for possible high risk PCI which will be done at tertiary care center but patient completely refused the procedure and does not want to do and only wants to continue medical management. Continue heparin drip for 48 hours along with aspirin, Plavix, high intensity statin and metoprolol XL if BP is permissible. Patient informed us that he did discuss with his primary environmental specialist that he would not want any further procedures and recommended to discuss with them again. I did discuss with his primary environmental specialist Dr. Cristopher Ga.. Patient will need to be on at least 2 antianginals if blood pressure permits including Toprol-XL 25 mg once daily and eventually calcium channel korey. Ranexa does not appear to be an option because of the end-stage renal disease on hemodialysis and if he continues to have pain can use it sparsely at 500 mg once daily if still in pain in spite of 2 antianginals. 2. History of paroxysmal atrial fibrillation, sick sinus syndrome, Medtronic dual-chamber permanent pacemaker in 2020-patient continues to be in paced rhythm at the present point of time. Rate is well-controlled. Patient is on amiodarone 200 mg daily which should be continued and patient should be on beta- korey increase metoprolol to 25 mg once daily. Unclear why patient is not on anticoagulation given his history of paroxysmal atrial fibrillation and he has elevated chads Vascor. Continue heparin drip for now. Patient needs to be on Eliquis 2.5 mg twice daily along with Plavix and aspirin can be discontinued if oral anticoagulation is pursued as outpatient. 3. Severe systolic CHF with an EF of 30 to 35% in December 2022, moderate to severe RV dysfunction, mild valvular abnormalities with mild to moderate PAH. Patient needs to be on goal-directed medical therapy and should be on metoprolol XL Entresto and spironolactone. Patient is end-stage renal disease on hemodialysis and continue fluid management with dialysis. Does not appear to be severely volume overloaded at the present point of time strict input output Daily 20 g odium diet. 4. End-stage renal disease on hemodialysis 5. Hypertension 6. Hyperlipidemia 7. Hypothyroidism 8. Diabetes mellitus type 2, 9. Chronic anemia 10. BPH 11. Possible gout Management of rest of the medical conditions as per primary team and other consultants. Thank you for the consult and allowing me to participate in the care of the patient. Cardiology will continue to follow. Britton Bolaños M.D. Interventional Cardiology
[2024-03-20 09:20] LABS: Partial Thromboplastin Time 58.5 Seconds (22.0-36.0)
[2024-03-20 09:56] LABS: Troponin I 6.564 ng/mL (0.0-0.045)
--- NOTE | 2024-03-20 10:04 | ESPR_ITS ---
Documentation for date of: 03/20/24 Subjective Subjective Interval history: Mr. Casillas is a 79-year-old gentleman with past medical history of CAD s/p CABG, HFrEF (EF 30 to 35% 2022), A-fib s/p pacemaker, ESRD (HD on MWF), DM 2, hyperlipidemia, hypothyroidism and hypertension presented to the emergency department sent by Dr. Ga for chest pain and elevated troponin. Patient started having chest pain the night before and went to Dr. Cartagena office without going to dialysis. He took [address] Cartagena sent him for troponin check and then it came back slightly elevated he was told to go to the emergency department. His daughter Kesha is at the bedside and is the informant. Patient missed dialysis yesterday. Renal consultation requested for need for dialysis. In the emergency department BUN 47, creatinine 4.6, troponin elevated to 5.5. Urinalysis shows mild UTI. Chest x-ray showed minimal fluid overload, EKG showed some ST changes. Dr. Ga was called by ER provider and he recommended heparin drip and to consult in school suspension aide. 03/18/2024 Patient currently seen in telemetry. Daughter at bedside.WBC 9.9, hemoglobin 10.7, platelets 131. Sodium 136, potassium 4.6, BUN 60, creatinine 5.1, GFR 11, A1c 6.4, AST 51, ALT less than 7, alk phos 125, troponin this morning 7.1, albumin 3.9. Lipids normal. Urinalysis shows 2+ protein, no bacteria. Chest x-ray showed mild fluid overload. 03/19/2024 patient currently seen in telemetry. Son at bedside. Had several questions. Patient admitted for chest pain-ruled in for NV. On heparin drip. Dr. Ga will come back in AM. Possibly needing angiogram. Next dialysis scheduled for tomorrow. 11/18/2024 patient was seen and examined at bedside. Denied any symptoms at this time . His blood pressure still on the lower side 93/53, hemoglobin stable at 10.6, serum sodium 134, potassium 4.2, BUN increased from 40-58 today, serum creatinine 6.1, glucose 151, calcium 9.0, patient will undergo dialysis today as per his schedule. Exam Vital Signs Temp Pulse Resp BP Pulse Ox O2 Del Method 97.3 F 54 L 18 93/53 L 94 L Room Air 03/20/24 08:00 03/20/24 08:27 03/20/24 08:00 03/20/24 08:27 03/20/24 08:00 03/20/24 08:00 Narrative Exam GEN: AOx3, able to speak full sentences HEENT: NC/AC, oral mucosa moist, neck supple CVS: Mid thoracic surgical scar, RRR, S1-S2 present, no murmurs appreciated RESP: CTAB GI: soft,non distended, non tender, NBS MSK: able to move all 4 limbs, no lower extremity edema,Dialysis Fistula in the right upper extremity. SKIN: warm and dry WORK ENVIRONMENT SAFETY INSPECTOR: CN II-XII and Sensation grossly intact. Objective Labs 03/20/24 05:25 03/20/24 05:25 Labs: Laboratory Results - last 24 hr 03/19/24 03/19/24 03/20/24 08:14 17:43 00:53 WBC RBC Hgb Hct MCV MCH MCHC RDW Std Deviation Plt Count Neut % (Auto) Lymph % (Auto) [place] % (Auto) Eos % (Auto) Baso % (Auto) Neut # (Auto) Lymph # (Auto) [place] # (Auto) Eos # (Auto) Baso # (Auto) Immature Gran # (Auto) Absolute Nucleated RBC Immature Gran % Nucleated RBC % APTT > 139.0 H* D 47.7 H D 55.8 H Sodium Potassium Chloride Carbon Dioxide Anion Gap BUN Creatinine Estim Creat Clear Calc eGFR BUN/Creatinine Ratio Glucose Calculated Osmolality Calcium Corrected Calcium Phosphorus Magnesium Total Bilirubin AST ALT Alkaline Phosphatase Troponin I Total Protein Albumin Globulin Albumin/Globulin Ratio 03/20/24 03/20/24 05:25 08:14 WBC 9.7 RBC 3.23 L Hgb 10.6 L Hct 31.4 L MCV 97 MCH 32.8 MCHC 33.8 RDW Std Deviation 42.6 Plt Count 146 Neut % (Auto) 68 Lymph % (Auto) 17 [place] % (Auto) 10 Eos % (Auto) 4 Baso % (Auto) 1 Neut # (Auto) 6.6 Lymph # (Auto) 1.6 [place] # (Auto) 1.0 H Eos # (Auto) 0.4 Baso # (Auto) 0.1 Immature Gran # (Auto) 0.04 H Absolute Nucleated RBC 0.00 Immature Gran % 0 Nucleated RBC % 0 APTT 58.5 H Sodium 134 L Potassium 4.2 Chloride 94 L Carbon Dioxide 26.0 Anion Gap 14 BUN 58 H Creatinine 6.1 H* D Estim Creat Clear Calc Not Performed. eGFR 9 L* BUN/Creatinine Ratio 10 L Glucose 151 H Calculated Osmolality 287 Calcium 9.0 Corrected Calcium 9.2 Phosphorus 4.2 Magnesium 2.3 Total Bilirubin 0.6 AST 31 ALT 17 Alkaline Phosphatase 123 H Troponin I 6.564 H* D Total Protein 7.5 Albumin 3.7 Globulin 3.8 H Albumin/Globulin Ratio 1.0 L Quality Measures Quality Measures none Advance care planning discussed with:: patient Assessment & Plan Assessment Current Active Medications: Generic Name Dose Route Start Last Admin Trade Name Freq PRN Reason Stop Dose Admin Acetaminophen 650 mg 03/17/24 17:10 Acetaminophen 325 Mg Tablet PO 04/16/24 17:09 Q6H PRN pain 1-3 and Fever >100.4 Hydrocodone Bitart/Acetaminophen 1 tab 03/17/24 17:10 03/18/24 18:29 Hydrocodone/Apap 5/325 Tablet PO 03/22/24 17:09 1 tab Q4HR PRN Administration PAIN SCALE 4-6 (Moderate Amiodarone HCl 200 mg 03/19/24 09:00 03/20/24 08:27 Amiodarone Hcl 200 Mg Tablet PO 04/18/24 08:59 200 mg QDAY ADOLFO Administration Aspirin 81 mg 03/18/24 09:00 03/20/24 08:26 Aspirin Ec 81 Mg Tabec PO 04/17/24 08:59 81 mg QDAY ADOLFO Administration Atorvastatin Calcium 40 mg 03/17/24 21:00 03/19/24 20:05 Atorvastatin Calcium 20 Mg Tablet PO 04/16/24 20:59 40 mg HS ADOLFO Administration Clopidogrel Bisulfate 75 mg 03/19/24 09:00 03/20/24 08:26 Clopidogrel Bisulfate 75 Mg Tablet PO 04/18/24 08:59 75 mg QDAY ADOLFO Administration Dextrose 25 ml 03/17/24 17:10 Dextrose 50%-Water Inj 50 Ml Syringe IV 04/16/24 17:09 Q15MIN PRN BG 50-70 responsive npo pt Dextrose 50 ml 03/17/24 17:10 Dextrose 50%-Water Inj 50 Ml Syringe IV 04/16/24 17:09 Q15MIN PRN BG <50 OR BG <70 & pt unresponsive Glucagon 1 mg 03/17/24 17:10 Glucagon Inj 1 Mg Vial IM Q15MIN PRN BG <70, and no IV access Heparin Sodium/Dextrose 25,000 unit in 250 mls @ 7.62 mls/hr 03/17/24 16:45 03/20/24 02:05 Heparin In D5w Ivpb IV 03/31/24 16:44 17 units/kg/hr .Q24H ADOLFO 10.796 mls/hr Titration Protocol 12 UNITS/KG/HR Insulin Human Lispro 0 unit 03/18/24 07:30 03/20/24 07:34 Insulin Lispro (Admelog) 1 Unit/0.01 Ml Unit SC 04/17/24 07:29 Not Given AC [facility] Protocol Levothyroxine Sodium 25 mcg/ 150 mcg 03/18/24 06:00 03/20/24 05:15 Levothyroxine Sodium 125 mcg PO 04/17/24 05:59 150 mcg ACBR ADOLFO Administration Metoprolol Succinate 25 mg 03/19/24 13:48 03/20/24 08:27 Metoprolol Succinate Xl 25 Mg Tabcr PO 04/18/24 08:59 Not Given QDAY ADOLFO Morphine Sulfate 1 mg 03/17/24 17:10 Morphine Sulf Inj 10 Mg/Ml Vial IVP 03/22/24 17:09 Q4H PRN PAIN SCALE 7-10 (Severe Ondansetron HCl 4 mg 03/17/24 17:10 Ondansetron Inj 2 Mg/Ml Inj 2 Ml IV 04/16/24 17:09 Q6H PRN NAUSEA OR VOMITING Protocol Pharmacy Consult 1 each 03/17/24 17:23 Pharmacy Renal Dose Adjustment 1 Ea XX 04/16/24 17:22 PRN PRN CONSULT Sacubitril/Valsartan 1 tab 03/19/24 21:00 03/20/24 08:28 Sacubitril 24 Mg/Valsartan 26 Mg Tablet PO 04/17/24 20:59 Not Given BID ADOLFO Plan #ESRD M/W/F #Hyperglycemia Patient is known case of diabetes mellitus, 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 Plan ? Dialysis today ? Strict in and out ? Pharmacy to dose medications ? Continue allopurinol #Non-STEMI type I #Heart failure #A-fib #Extensive history of CAD status post CABG #Hypertension #Diabetes mellitus #Hyperlipidemia #Anemia Plan ? Follow-up with the primary team recommendations Thank you very much for your consultation, please do not hesitate to reach out if you have any question or concerns - Patient's plan and care discussed with my attending, Dr. Jonathan Hanson MD Internal Medicine PGY-2 Attending Provider Attestation/Addendum Seen and examined with resident physician Dr. Le. Note reviewed, agree with findings and recommendations. Awaiting cardiology recommendations regarding angiogram. Patient currently seen on dialysis. Tolerating dialysis without any problems. Hemodialysis for 3 hours, 2K, ultrafiltration 1 L, Epogen 6000, no heparin ordered. Plan of care discussed with the dialysis nurse. Please see dialysis flowsheet for further details.
--- NOTE | 2024-03-20 10:26 | ESDS_ITS ---
<Statement entered by Karon Yoo MD - 03/20/24 15:31> I discussed with and supervised my co-resident involved in the care of this patient. I agree with the assessment and plan as documented above. Karon Yoo,PGY-3 Disclaimer: Despite multiple revisions, due to the dictation software being used, the document below may not be free of grammatical errors including phonetic/typographic errors. However, this does not deter from our commitment to providing health care in the patient's best interest in mind. Planned Discharge Date 03/20/24 DS: Providers Provider Date of admission: 03/17/24 17:10 Primary care physician: Nieves Castillo MD Admitting Provider: Isai Perry MD Attending Provider on Admission: Isai Perry MD Consults: 03/17/24 15:42 Consult to Cardiology Stat Comment: Chest pain, elevated troponin Consulting Provider: Britton Bolaños 03/17/24 16:33 Consult to Nephrology Stat Comment: esrd Consulting Provider: Nieves Castillo 03/17/24 17:26 Referral Physical Therapy Routine Comment: Physician Instructions: 03/20/24 08:59 Consult to Cardiology Routine Comment: Consulting Provider: Cristopher Ga Attending Provider on DC: Isai Perry MD Discharging Provider: Isai Perry MD DS: Diagnosis Problem List Completed Was Problem List Reviewed/Reconciled?: Yes Hospital Course Hospital Course Hospital course: 79-year-old male with past medical history of CAD s/p CABG, HFrEF (EF 30 to 35% 2022), A-fib s/p pacemaker, ESRD (HD on MWF), DM 2, hypothyroidism, hyperlipidemia, and hypertension was admitted to hospital on 03/17/2024 for elevated troponins and chest pain. 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 Initially patient came in hypertensive and afebrile. Initial labs were relevant for mild leukocytosis (11), # normochromic anemia (12.4), elevated BUN and creatinine (47 and 4.6 respectively), troponinemia (3.906 and up trended to 5.526), and UA was positive for leukocyte esterase. Initial imaging included chest x-ray which showed heart failure pattern, and EKG which showed some ST elevations in lead III, aVF, V3, V4, and V5. Cardiology was consulted and given the patient refused to get heart catheterization he was started on heparin drip. Patient completed 48 hours of heparin drip and at the time of discharge troponins were repeated and showed downtrend to 6.564. At this time patient's instrument/control technician was contacted and stated the patient could be discharged home with his atorvastatin, DAPT, metoprolol, and Entresto. Cardiology stated that patient should follow-up with him in this week. Throughout his hospital stay patient remained stable with no new onset chest pain. At the time of discharge patient was stable enough to be discharged home with strict instructions to have close follow-up with instrument/control technician. Discharge plan: Please follow-up with your PCP within 1 week of discharge. ? We have started you on metoprolol XL 25 mg daily ? We have change your Entresto to 1 tablet p.o. twice daily ?We have discontinued your carvedilol 6.25 mg twice daily ? We have discontinued your Lasix 40 mg daily ?Continue all other prescribed medications as prescribed ? Please take your blood pressure prior to taking metoprolol and Entresto if systolic blood pressure is below 95 pr diastolic blood pressure below 55 do not take metoprolol XL 25 mg daily ?Please follow-up with your instrument/control technician in 2 to 3 days after discharge ? Please come back to the ER if any symptoms persist or worsen. Problem list: #Acute coronary syndrome most likely NSTEMI type I # History of CAD with CABG #Typical chest pain #Elevated Troponin #ESRD (HD on MWF) #Normocytic normochromic anemia #Mild leukocytosis, resolved #Hx of HFrEF (EF 30 to 35% in 2022) #Hx of A-fib s/p pacemaker #Hx of DM2 #Hx of hyperlipidemia #Hx of hypothyroidism #Anxiety Case disclosed with Attending Dr. Perry and My senior Dr. Yoo PGY3. Israel Dugan PGY1 Status at Discharge Overall status at discharge: patient is progressing back to baseline Time Spent with Patient Time attestation: Total time spent providing and/or coordinating discharge services:>35 min Exam Vital Signs Temp Pulse Resp BP Pulse Ox O2 Del Method 96.4 F L 60 18 103/58 L 94 L Room Air 03/20/24 10:12 03/20/24 10:12 03/20/24 10:12 03/20/24 10:12 03/20/24 10:12 03/20/24 08:00 Narrative Exam General: A/O x3, no acute distress, well-nourished, well-developed Eyes: PERRL, EOMI. Anicteric, vision grossly intact. Ears: No ear pain, no ear discharge, Hearing grossly intact. Nose: No nasal discharge. Mouth/Throat: Moist mucous membranes, no redness, no lesions. Neck: Neck supple, non-tender, no cervical lymphadenopathy. Lungs: Clear KARIS to auscultation and percussion, No accessory muscle use. Cardio: Normal S1/S2, regular rhythm, no murmurs, no JVD Abdomen: Soft, non-tender, no palpable masses, peristalsis present, no guarding or rebound. Extremities: Symmetrical, no significant deformities, no peripheral edema , non-tender, peripheral pulses presents. Skin: No rashes, no lesions, warm to touch. AV fistula in R UE, scar in mid chest Neuro: No focal neurological deficits. motor and sensory intact Psych: Cooperative, appropriate mood and effect. Discharge Plan Plan Patient Disposition: Home w/HOME HEALTH Disposition Comment: FOR medication and nursing support Patient condition on transfer: Stable Care Plan Goals: Please follow-up with your PCP within 1 week of discharge. ? We have started you on metoprolol XL 25 mg daily ? We have change your Entresto to 1 tablet p.o. twice daily ?We have discontinued your carvedilol 6.25 mg twice daily ? We have discontinued your Lasix 40 mg daily ?Continue all other prescribed medications as prescribed ? Please take your blood pressure prior to taking metoprolol and Entresto if systolic blood pressure is below 95 pr diastolic blood pressure below 55 do not take metoprolol XL 25 mg daily ?Please follow-up with your instrument/control technician in 2 to 3 days after discharge ? Please come back to the ER if any symptoms persist or worsen. Prescriptions/Referrals Prescriptions/Med Rec: New metoprolol succinate 25 mg Tablet Extended Release 24 Hr 25 mg PO QDAY 30 Days Qty: 30 0RF sacubitril-valsartan [Entresto] 24-26 mg Tablet 1 tab PO BID 30 Days Qty: 60 0RF Continued clopidogrel [Plavix] 75 mg Tablet 75 mg PO QDAY Hold Instructions: Resume on 02/03/21. Nephro-Frances 0.8 mg Tablet 1 tab PO QDAY levothyroxine 100 mcg Tablet 150 mcg PO QDAY allopurinol 100 mg Tablet 100 mg PO QDAY alprazolam 0.5 mg Tablet 0.5 mg PO QDAY PRN (Reason: Anxiety) Tradjenta 5 mg Tablet 5 mg PO QAM atorvastatin 40 mg tablet 20 mg PO QPM amiodarone 200 mg tablet 200 mg PO DAILY Discontinued furosemide 40 mg Tablet 40 mg PO QAM carvedilol 6.25 mg Tablet 6.25 mg PO BID Rx Instructions: must administer with a meal/food sacubitril-valsartan [Entresto] 49-51 mg Tablet 2 tab PO BID Referrals: Nieves Castillo MD [Primary Care Provider] - Patient/Caregiver Discharge Instructions Discharge Activity: activity as tolerated Education Materials: Coping with Kidney Failure, Cardiac Rehab Getting Started, Heart Attack: Leaving the Hospital, Heart Attack: Back at Home Print Language: Argentine Stand Alone Forms: Susana Award Info., Patient Portal Info Letter Discharge Order Discharge Orders: Discharge (Routine); Ordered 03/20/24 Ordered By: Emiliano Travis Quality Discharge Quality Measures VTE prophylaxis Attestestation MD Attestation I have examined the patient, reviewed labs and imaging findings, discussed the case with the resident(s), and reviewed entered orders. I agree with the plan of care as outlined in this note. Dr. Perry
[2024-03-20] MEDS: EPOETIN ALFA-EPBX INJ 40,000 UNIT/ML VIAL (ESRD) 10000 UNIT SC (11:45)
--- NOTE | 2024-03-20 12:26 | PC.CC ---
Received order, [facility]
--- NOTE | 2024-03-20 13:40 | PC.NURSE ---
Dialysis completed for 3 hrs, tolerated well. Pt british speaking awake, A/O x4, no complaint of pain. Respiration even and unlabored sating at 95% RA. Able to removed 1000 ml of fluid net. Post tx BP 127/62, HR 62, Temp 96.8. Pt back in his rm. Call light within reached. Pressure dressing on right upper arm AV fistula clean/dry/intact. No bleeding noted. Pressure dressing to be remove at 1530. Report given to Anabel VALENTINE
--- NOTE | 2024-03-20 14:31 | PC.SS ---
PAINT LABORATORY TECHNICIAN conducted phone contact with the patient?s daughter, Kesha Casillas to conduct initial assessment and to discuss discharge planning. Patient participating with dialysis at bedside attempt. Patient resides at home with family. Patient does not utilize DME to assist with ambulation. Patient does not require the use of home oxygen. Patient requires assistance with completion of ADL?s. Patient?s medical surrogated decision maker is daughter, Kesha Casillas. Patient?s PCP is Dr. Castillo. Dr. Castillo is also the patient?s epic willow analyst. Patient is established with outpatient dialysis. Schedule is M, W, F. Patient utilizes [facility]; for medication services. Patient is aligned with [facility] home health. Plan is to resume home health services with [facility] upon discharge. Family will provide transportation on behalf of the patient at time of discharge. No further intervention required at this time, social media coordinator will be available to address any further concerns. Next of Kin: Kesha Casillas D/C Plan: Home
--- NOTE | 2024-03-20 14:45 | PC.SS ---
Rounding Note: Plan is to d/c home with home health.
--- NOTE | 2024-03-21 14:39 | PC.CM ---
Addendum entered by Arsalan Boland RN 03/21/24 14:55: [facility] accepted the pt. Booked [facility]. Start of care date is 03/22/24. Addendum entered by Arsalan Boland RN 03/21/24 14:40: referral sent on [facility]. Awaiting responses. Pending start of care date. Original Note: Per SS notes, patient is aligned with [facility].
== END 2024-03-20 17:12 | disposition home health service (06) | DRG 280 ==
LOC: SERX 16:50 → SERHOLD 17:28 → S2NX 23:57
PROVIDERS: Nurse Practitioner Family; Admitting Provider Student in an Organized Health Care Education/Training Program; Emergency Provider Emergency Medicine; PCP Internal Medicine; Visit Provider Student in an Organized Health Care Education/Training Program
DX: I21.4 Non-ST elevation (NSTEMI) myocardial infarction (principal); N18.6 End stage renal disease; N39.0 Urinary tract infection, site not specified; I13.2 Hypertensive heart and chronic kidney disease with heart failure and with stage 5 chronic kidney disease, or end stage renal disease; I50.42 Chronic combined systolic (congestive) and diastolic (congestive) heart failure; E11.22 Type 2 diabetes mellitus with diabetic chronic kidney disease; E78.5 Hyperlipidemia, unspecified; I25.10 Atherosclerotic heart disease of native coronary artery without angina pectoris; E11.65 Type 2 diabetes mellitus with hyperglycemia; D63.1 Anemia in chronic kidney disease; Z95.1 Presence of aortocoronary bypass graft; Z95.0 Presence of cardiac pacemaker; E03.9 Hypothyroidism, unspecified; F41.9 Anxiety disorder, unspecified; I48.0 Paroxysmal atrial fibrillation; I50.82 Biventricular heart failure; N40.0 Benign prostatic hyperplasia without lower urinary tract symptoms; Z99.2 Dependence on renal dialysis; Z95.5 Presence of coronary angioplasty implant and graft
CPT/HCPCS: 36415; 71045; 80053; 80061; 81001; 83036; 83735; 84100; 84484; 85025; 85610; 85730; 86850; 86900; 86901; 87086; 93005; 93306; 96365; 96366; 97162; 99285; J1643; J1644; J1815; J3475; Q5105; A9270

== ENCOUNTER → 2024-03-17 | Outpatient (CLI) | payer MEDICARE, MEDICAID, SELFPAY ==
[2024-03-17 12:00] LABS: Troponin I 3.906 ng/mL (0.0-0.045)
--- NOTE | 2024-03-20 18:48 | ESPR_ITS ---
RE: LOU CASILLAS : 1945 DATE OF SERVICE: 03/20/2024 HISTORY OF PRESENT: Mr. Casillas is resting comfortably in bed. The patient is breathing well. Denies any complaint of chest pain. Denies any complaint of skip beats or palpitations. Denies any complaint of dizziness or diaphoresis. PHYSICAL EXAMINATION: Vital Signs: The patient's blood pressure today is 127/62. The pulse rate is 62 per minute and regular. Temperature is 96.9. The respiratory rate is 18. The oximetry saturation is 95% on room air. Heart and Lungs: Clear. Extremities: No pedal edema is noted. LABORATORY DATA: Today shows hemoglobin of 10.6 with hematocrit of 31.4. The patient's BUN today is 58, creatinine 6.1, potassium level is 4.2. The troponin level is better than before, though still elevated and is 6.564. The last troponin level on 03/18/2024 was 7.179. PLAN: The patient is refusing any invasive procedures and is eager to be discharged home. Plan to continue the patient on all present medications. The intravenous heparin will be discontinued. The rest of the medications will be continued as before and the patient will be seen for cardiac followup visit in my office within this week. The patient is advised to call back if the patient has any recurrence of cardiac symptoms. DT: 17:29:32 TT: 18:46:00 Ref: [id number] - TID: [id number]
== END | disposition home or self-care (01) ==
PROVIDERS: PCP Internal Medicine; Referring Provider Internal Medicine Cardiovascular Disease; Visit Provider Internal Medicine Cardiovascular Disease
DX: I25.118 Atherosclerotic heart disease of native coronary artery with other forms of angina pectoris (principal); I48.0 Paroxysmal atrial fibrillation; E78.2 Mixed hyperlipidemia; I50.22 Chronic systolic (congestive) heart failure
CPT/HCPCS: 36415; 84484